=== PATIENT | female | born 1980 | race Caucasian/White ===

== ENCOUNTER 2018-01-07 07:51 | Emergency (ER) | payer OTHER ==
[2018-01-07 08:14] VITALS: BP 154/68
--- NOTE | 2018-01-07 08:46 | UC ---
Skin Complaint HPI - HPI Summary HPI Summary: 37 female presents to urgent care with complaints of a rash to her right arm that began on 01/05/18. Patient states she was at a concert and believe she was bit by a insect/spider. States rash is red and itchy. He took one Benadryl yesterday with some relief. Did apply some hydrocortisone cream which helped with the itching. Denies rash anywhere else. No fever no chills. No other complaints. Does have allergies. States the rash got worse on Monday, and has noticed 3 different bites on her right arm. denies any pain or discharge. - History of Current Complaint Hx Obtained From: Patient Hx Last Menstrual Period: n/a ?: No Onset/Duration: Sudden Onset, Lasting Days, Still Present Skin Exposure Onset/Duration: Days Ago Onset Severity: Mild Current Severity: Moderate Pain Intensity: 0 Pain Scale Used: 0-10 Numeric Location: Other - Right arm Character: Swelling, Pruritus, Redness Aggravating Factor(s): Humidity Alleviating Factor(s): Antihistamines - Benadryl and hydrocortisone cream Associated Signs & Symptoms: Positive: Rash Related History: Insect Bite/Sting <Roxann Talamantes - Last Filed: 01/07/18 08:48> <Michela Calzada - Last Filed: 01/07/18 09:39> - History of Current Complaint Chief Complaint: UCRash Time Seen by Provider: 01/07/18 08:14 Stated Complaint: RASH - RT ARM - Allergy/Home Medications Allergies/Adverse Reactions: Allergies Allergy/AdvReac Type Severity Reaction Status Date / Time seasonal Allergy Congestion Uncoded 01/07/18 08:04 Home Medications: Home Medications A-Nasal 1 spr BOTH NARES BID 01/07/18 [History Confirmed 01/07/18] Allergy Injections 1 dose SUBCUT SEE INSTRUCTIONS 01/07/18 [History] Fluticasone-Salmeterol 100-50* [Advair Diskus 100-50*] 1 puff INH BID 01/07/18 [ History Confirmed 01/07/18] Power C Vitamin Gummi 1 tab PO DAILY 01/07/18 [History] Zo-Lair Injection For Asthma 1 dose IM MONTHLY 01/07/18 [History] diPHENhydraMINE PO* [Benadryl PO 50 MG CAP*] 50 mg PO BEDTIME PRN 01/07/18 [ History Confirmed 01/07/18] Review of Systems Constitutional: Negative Skin: Rash Respiratory: Negative Cardiovascular: Negative - Small pain: All Other Systems Reviewed And Are Negative: Yes <Roxann Talamantes - Last Filed: 01/07/18 08:48> PMH/Surg Hx/FS Hx/Imm Hx - Additional Past Medical History Additional PMH: seasonal allergies GI/ History: Gastroesophageal Reflux - Surgical History Surgical History: Yes Surgery Procedure, Year, and Place: wisdom teeth, tonsils, c section x 1 - Family History Known Family History: Positive: None - Social History Alcohol Use: Occasionally Substance Use Type: None Smoking Status (MU): Never Smoked Tobacco - Immunization History Vaccination Up to Date: Yes <Roxann Talamantes - Last Filed: 01/07/18 08:48> Physical Exam Triage Information Reviewed: Yes Appearance: Well-Appearing, No Pain Distress, Well-Nourished Vital Signs: Initial Vital Signs Temp 98.4 F 01/07/18 08:06 Pulse 71 01/07/18 08:06 Resp 24 01/07/18 08:06 BP 154/68 01/07/18 08:06 Pulse Ox 98 01/07/18 08:06 Vital Signs Reviewed: Yes Eyes: Positive: Conjunctiva Clear Neck: Positive: Supple Respiratory: Positive: Chest non-tender, Lungs clear, Normal breath sounds, No respiratory distress Cardiovascular: Positive: RRR, No Murmur, Pulses Normal Musculoskeletal: Positive: Strength Intact, ROM Intact Neurological: Positive: Alert Skin: Positive: rashes - appears to have 3 disctint insect bites to right arm with erythema, induration and pruritis, no drainage, pain or rash elsewhere, rest of skin exam normal <Roxann Talamantes - Last Filed: 01/07/18 08:48> Vital Signs: Initial Vital Signs Temp 98.4 F 01/07/18 08:06 Pulse 71 01/07/18 08:06 Resp 24 01/07/18 08:06 BP 154/68 01/07/18 08:06 Pulse Ox 98 01/07/18 08:06 <Michela Calzada - Last Filed: 01/07/18 09:39> Course/Dx - Course Course Of Treatment: Patient has significant seasonal allergies she receives allergy shots for. Appears to be suffering from a contact dermatitis from insect bites. Recommended taking Claritin or Zyrtec during the day Benadryl at bedtime. Use prescribed triamcinolone cream. Recommended cold compresses to help with itching and to soothe the pain. Aware of worsening signs and to symptoms watch out for follow-up with PCP if any concerns. No other concerns or other etiology at this time. Normal vitals and physical exam otherwise. - Differential Diagnoses - Skin Complaint Differential Diagnoses: Contact Dermatitis, Local Allergic Reaction, Other - insect bite - Diagnoses Provider Diagnoses: local allergic reaction, insect bite <Roxann Talamantes - Last Filed: 01/07/18 08:48> Discharge - Sign-Out/Discharge Documenting (check all that apply): Discharge - Billing Disposition and Condition Condition: GOOD Disposition: HOME <Roxann Talamantes - Last Filed: 01/07/18 08:48> - Billing Disposition and Condition Condition: GOOD Disposition: HOME <Michela Calzada - Last Filed: 01/07/18 09:39> - Discharge Plan Condition: Good Disposition: HOME Prescriptions: Triamcinolone 0.1% CREAM(NF) [Kenalog Cream 0.1%(NF)] 1 applic TOPICAL BID #1 tube Patient Education Materials: Triamcinolone (On the skin), Contact Dermatitis ( ED), Insect Bite or Sting (ED), General Allergic Reaction (ED) Referrals: Rosana Burroughs, [facility] [Primary Care Provider] - Additional Instructions: Recommend OTC claritin or zyrtec during the day. Benadryl at bedtime, while symptoms last. Use prescribed cream to help with itching, erythema and swelling. Apply cool compresses to sooth and help with itching. Any new or worsening signs/symptoms please seek medical attention, as we discussed. Follow up with PCP to re-check in a few days if any concerns. Attestation Statement User Type: Provider - I was available for consult. This patient was seen by the LINNETTE. The patient was not presented to, seen by, or examined by me. -Jean <Michela Calzada - Last Filed: 01/07/18 09:39>
== END 2018-01-07 08:59 | disposition home or self-care (01) ==
LOC: UCCORT 07:51
DX: T63.481A Toxic effect of venom of other arthropod, accidental (unintentional), initial encounter (principal); R21 Rash and other nonspecific skin eruption
CPT/HCPCS: 99212; G0463

== ENCOUNTER 2018-04-07 08:23 | Emergency (ER) | payer OTHER ==
[2018-04-07 08:45] VITALS: BP 140/77
--- NOTE | 2018-04-07 09:18 | UC ---
Neck Pain HPI - HPI Summary HPI Summary: Patient is a 38-year-old female with a one-week history of right lateral neck pain radiating to her shoulder. He has no history of injury. Had similar symptoms before but usually they resolve in a few days. She has been taking some ibuprofen which tends to help. He has no numbness or tingling of the right upper extremity. She denies any headache. - History of Current Complaint Chief Complaint: UCUpperExtremity Stated Complaint: NECK COMPLAINT Time Seen by Provider: 04/07/18 09:03 Hx Obtained From: Patient Hx Last Menstrual Period: unknown Timing: Constant Onset/Duration: Gradual Onset, Lasting Days Severity: Moderate Pain Intensity: 6 Pain Scale Used: 0-10 Numeric Character: Aching, Stiff, Spasmotic Alleviating Factors: Position, Heat, Ice, Massage, OTC Meds Associated Signs & Symptoms: Positive: Negative - Allergies/Home Medications Allergies/Adverse Reactions: Allergies Allergy/AdvReac Type Severity Reaction Status Date / Time seasonal Allergy Congestion Uncoded 04/07/18 08:35 Home Medications: Home Medications Levonorgestrel (Iud) [Mirena IUD] 20 mcg IU ONCE 04/07/18 [History Confirmed ] PMH/Surg Hx/FS Hx/Imm Hx Endocrine History: Dyslipidemia Cardiovascular History: Hypertension Respiratory History: Asthma, Bronchitis GI/ History: Gastroesophageal Reflux - Surgical History Surgical History: Yes Surgery Procedure, Year, and Place: wisdom teeth, tonsils, c section x 1 - Family History Known Family History: Positive: Hypertension - Social History Alcohol Use: Occasionally Substance Use Type: None Smoking Status (MU): Never Smoked Tobacco - Immunization History Vaccination Up to Date: Yes Review Of Systems Constitutional: Positive: Negative Skin: Positive: Negative Eyes: Positive: Negative ENT: Positive: Negative Respiratory: Positive: Negative Cardiovascular: Positive: Negative Gastrointestinal: Positive: Negative Genitourinary: Positive: Negative Musculoskeletal: Positive: Myalgia Neurological: Positive: Negative Psychological: Positive: Negative All Other Systems Reviewed And Are Negative: Yes Physical Exam Triage Information Reviewed: Yes Appearance: Well-Appearing, No Pain Distress, Well-Nourished Vital Signs: Initial Vital Signs Temp 98.2 F 04/07/18 08:39 Pulse 64 04/07/18 08:39 Resp 16 04/07/18 08:39 BP 140/77 04/07/18 08:39 Pulse Ox 98 04/07/18 08:39 Vital Signs Reviewed: Yes Eyes: Positive: Conjunctiva Clear ENT: Positive: Hearing grossly normal. Negative: Nasal congestion, Nasal drainage, Trismus, Muffled voice, Hoarse voice Dental: Negative: Dental Fracture @ Neck: Positive: Nontender, No Lymphadenopathy, Other: - pain right trapzius with limited RIM Respiratory: Positive: Lungs clear, Normal breath sounds, No respiratory distress, No accessory muscle use Cardiovascular: Positive: RRR, No Murmur Musculoskeletal: Positive: ROM Intact, No Edema Neurological: Positive: Alert Psychological Exam: Normal Skin Exam: Normal Neck Pain Course/Dx - Differential Dx/Diagnosis Provider Diagnoses: right cervical strain Discharge - Sign-Out/Discharge Documenting (check all that apply): Discharge/Admit/Transfer - Discharge Plan Condition: Stable Disposition: HOME Prescriptions: Cyclobenzaprine TAB* [Flexeril TAB*] 10 mg PO TID PRN #21 tab PRN Reason: Spasms Patient Education Materials: Cervical Strain (ED) Referrals: Rosana Burroughs NP [Primary Care Provider] - 3 Days Additional Instructions: see your provider Monday as planned don't take muscle relaxer and drive or work ibuprofen 200mg 3 pills 4x day with food for pain soft cervical collar when up - Billing Disposition and Condition Condition: STABLE Disposition: Home
== END 2018-04-07 09:18 | disposition home or self-care (01) ==
LOC: UCCORT 08:23
DX: S16.1XXA Strain of muscle, fascia and tendon at neck level, initial encounter (principal); X58.XXXA Exposure to other specified factors, initial encounter; Y93.9 Activity, unspecified; Y92.9 Unspecified place or not applicable; I10 Essential (primary) hypertension
CPT/HCPCS: 99213; G0463

== ENCOUNTER 2018-12-17 08:07 | Emergency (ER) | payer OTHER ==
--- OUTSIDE RECORDS SUMMARY | 2018-12-17 08:24 | XMS REPORT | Continuity of Care Document ---
:1980 External Reference #:[id number] Author Name ANUP Lopez-Hunter Address [address] [place] [address] Care Team Providers Name Role Phone Itzel Salter MD Care Team Information Offline Cutter Unavailable Rosana Burroughs V, FNP Primary Care Physician Unavailable Payers Date Identification Numbers Payment Provider Subscriber Effective: 2017 Policy Number: [id number] [facility] Group Number: BERNICE #[id number] [address] Group Name: Medicaid [place] [address] PayID: [id number] Effective: 2013 Policy Number: [id number] Medicaid-Adult Betty Shields Expires: 2013 Group Name: 1 1 [id number] [facility] PayID: [id number] [place] [address] Effective: 2013 Policy Number: [id number] [facility] Betty Shields Expires: 2017 Group Number: BERNICE# [id number] [address] Group Name: Medicaid [place] [address] PayID: [id number] Advance Directives Description No Information Available Problems Date Description Provider Status Onset: 06/28/2012 Allergic rhinitis due to pollen Cindy Loja M.D. Active Onset: 06/28/2012 Allergic rhinitis Cindy Loja M.D. Active Onset: 01/18/2017 Uncomplicated severe persistent Vinay Colon M.D. Active asthma Onset: 09/21/2017 Uncomplicated moderate persistent Toribio Ryan M.D. Active asthma Family History Date Family Member(s) Observation Comments General Emphysema Paternal grandfather General Diabetes General Hypertension General Stroke General Hypercholesterolemia General Skin Disease/ Rash General Thyroid Disease General Cystic Fibrosis General Fibromyalgia General Arthritis Mother Father Hypercholesterolemia Father Stroke Father Hypertension Father Diabetes Mother Fibromyalgia Mother Unknown hypothyroid Mother Skin Disease/ Rash Mother Cystic Fibrosis Social History Type Date Description Comments Sex Unknown Marital Status Legal Status: Never Lives With Father Lives With Daughter Home Environment Does not use air manager rail Home Environment Has a window air conditioner Home Environment Stairs are present Home Environment Unfinished Basement Home Environment The basement is dry Home Environment Negative For The basement is moldy Home Environment The basement is damp Home Environment Negative For Musty Basement Home Environment Down Comforter Home Environment Mattress is 8 years old Home Environment Mattress is not encased in an allergy proof case Home Environment Cotton Mattress Cover Home Environment Regular Mattress Home Environment Pillows are not encased in an allergy proof case Home Environment Pillows are polyester Home Environment Does not use a dehumidifier Home Environment There are no draperies in the home Home Environment The home is not flora Home Environment The floors are carpeted Bedroom Home Environment The floors are tile Home Environment Uses natural gas heating Home Environment Lives in a new house Home Environment Lives in a new house in the city Home Environment Water Source: [facility] Smoke-Free Home is smoke-free Smoke-Free Work is smoke-free Pets Hamster 3 years, not in [place] Occupation Substitute Aide at Here Completed training [employer] at [facility] ETOH Use Occasionally consumes alcohol Recreational Drug Use Never Used Drugs Tobacco Use Start: Unknown Patient has never smoked Smoking Status Reviewed: 01/18/17 Patient has never smoked Allergies, Adverse Reactions, Alerts Description No Known Drug Allergies Medications Medication Date Status Form Strength Qnty SIG Indications Ordering Provider Augmentin 10/03 Active Tablets 875-125mg 28tab take 1 by Z23 Carmen /2018 s mouth twice a [place], day for 14 [facility] days Sterile Water 05/14 Active Solution 6mont use to Carmen For Injection hs reconstitute [place], xolair. [facility] single-dose vial(s), discard after use. Clotrimazole 05/08 Active Cream 1% 45gm use twice a J30.1 Carmen day to the [place], area [facility] Triamcinolone 05/08 Active Cream 0.1% 80gm apply to area J30.1 Carmen Acetonide twice a day [place], [facility] Epinephrine 02/09 Active Solution 0.3mg/0.3 2unit use as Carmen Auto-Inject ML s directed - bright Espinoza generic [facility] only [facility] [place]# [id number] Montelukast 01/08 Active Tablets 10mg 90tab take 1 tablet J45.40 Carmen Sodium s by mouth [place], every evening [facility] Fluticasone 09/11 Active Suspension 50mcg/Act 16uni Use 1 [place] Desire Propionate ts In Each Devang, Nostril Twice [facility] Daily Azelastine HCL 05/25 Active Solution 0.1% 90uni 1-2 Sprays In Z68.43 Ana (Nasal) ts Each Nostril Ash, 1-2 Times Per [facility] Day Cetirizine HCL 01/26 Active Tablets 10mg 30tab 1 by mouth Z68.43 Ana /2017 s every day Ash, [facility] Xolair 11/24 Active Solution 150mg 6unit inject 300 mg Carmen /2017 Rec s subcutaneousl drich, y every 4 [facility] weeks. Advair Diskus 08/31 Active Aerosol 500-50mcg 180un Use 1 puff By J45.40 Ana /2015 /Dose its Mouth Twice Ash, Daily [facility] Ventolin HFA 02/17 Active Aerosol 108(90Bas 1unit 2 inhalations Louisa /2014 e) s every 4-6 Forshier, mcg/Act hours as [facility] needed for cough, wheeze, sob, chest tightness Albuterol 02/06 Active Nebulizer 1.25mg/3M 75ml 1 vial via J30.1 Carmen Sulfate L nebulizer [place], every 4-6 [facility] hours as needed for cough, sob or wheezing Fexofenadine 01/29 Active Tablets 180mg 30tab 1 tablet by Desire /2012 s mouth Devang, everyday. [facility] Bisoprolol Active Tablets 5-6.25mg Rudy Salter/ Itzel cason MD Omeprazole Active Capsules DR 40mg 1 by mouth every day Lovastatin Active Tablets 10mg 1 tab daily Meclizine HCL Active Tablets 25mg as needed Levothyroxine Active Tablets 50mcg once daily Unknown Vitamin C Active Capsules 500mg 1 by mouth twice a day Multi For Her Active Tablets 1 tab daily Furosemide Active Tablets 20mg as needed Rgune, jamee Martínez V, [facility] Ibuprofen Active Tablets 200mg three tabs three times per day as needed. Medications Administered in Office Medication Date Status Form Strength Qnty SIG Indications Ordering Provider Biologic Agent 11/27/ Administered Injection Carmen Administration 2018 Olga, [facility] Injection 11/13/ Administered Injection Allergy 2018 Injection Injection 10/31/ Administered Injection Allergy 2018 Injection Biologic Agent 10/23/ Administered Injection Carmen Administration 2018 Ulwilliams, [facility] Injection 10/16/ Administered Injection Allergy 2018 Injection Biologic Agent 09/25/ Administered Injection Carmen Administration 2017 Uldrshamir, [facility] Injection 09/18/ Administered Injection Allergy 2018 Injection Injection 09/04/ Administered Injection Allergy 2018 Injection Biologic Agent 08/28/ Administered Injection Carmen Administration 2017 Ulwilliams, [facility] Injection 08/14/ Administered Injection Allergy 2018 Injection Injection 07/25/ Administered Injection Allergy 2017 Injection Injection 07/10/ Administered Injection Allergy 2018 Injection Biologic Agent 07/04/ Administered Injection Carmen Administration 2017 Uldrshamir, [facility] Injection 06/26/ Administered Injection Allergy 2017 Injection Biologic Agent 06/14/ Administered Injection Cindy Administration 2017 Xiomy Loja Biologic Agent 06/14/ Administered Injection Desire Administration 2017 Devang [facility] Injection 05/30/ Administered Injection Allergy 2017 Injection Injection 05/15/ Administered Injection Allergy 2017 Injection Biologic Agent 05/08/ Administered Injection Carmen Administration 2017 [place], [facility] Injection 05/01/ Administered Injection Allergy 2017 Injection Injection 04/18/ Administered Injection Allergy 2017 Injection Biologic Agent 04/10/ Administered Injection Cindy Administration 2017 Xiomy Loja Biologic Agent 04/10/ Administered Injection Carmen Administration 2017 [place], [facility] Injection 04/03/ Administered Injection Allergy 2017 Injection Injection 03/21/ Administered Injection Allergy 2017 Injection Biologic Agent 05/ Administered Injection Carmen Administration 2017 [place], [facility] Injection 03/06/ Administered Injection Allergy 2017 Injection Injection 15/ Administered Injection Allergy 2017 Injection Biologic Agent 05/08/ Administered Injection Cindy Administration 2017 Xiomy Loja Biologic Agent 05/ Administered Injection Carmen Administration 2017 [place], [facility] Injection 02/06/ Administered Injection Allergy 2017 Injection Injection 01/23/ Administered Injection Allergy 2017 Injection Biologic Agent // Administered Injection Carmen Administration 2017 [place], [facility] Injection 12/26/ Administered Injection Allergy 2017 Injection Biologic Agent 12/19/ Administered Injection Louisa Administration 2017 Forshier, [facility] Injection 12/12/ Administered Injection Allergy 2017 Injection Biologic Agent // Administered Injection Cindy Administration 2017 Xiomy Loja Biologic Agent 11/21/ Administered Injection Louisa Administration 2017 Forshier, [facility] Injection 11/14/ Administered Injection Allergy 2018 Injection Injection 10/31/ Administered Injection Allergy 2018 Injection Biologic Agent 10/24/ Administered Injection Cindy Administration 2017 Xiomy Loja Biologic Agent 16/ Administered Injection Carmen Administration 2017 [place], [facility] Injection 10/17/ Administered Injection Allergy 2017 Injection Biologic Agent /14/ Administered Injection Toribio Administration 2016 Xiomy Ryan Injection 08/29/ Administered Injection Allergy 2016 Injection Biologic Agent 08/22/ Administered Injection Cindy Administration 2016 Xiomy Loja Biologic Agent 08/22/ Administered Injection Louisa Administration 2017 Forshier, [facility] Injection 08/15/ Administered Injection Allergy 2016 Injection Injection 08/01/ Administered Injection Allergy 2016 Injection Biologic Agent 07/25/ Administered Injection Carmen Administration 2016 [place], [facility] Injection 07/11/ Administered Injection Allergy 2016 Injection Injection 06/29/ Administered Injection Cindy 2016 Xiomy Loja Injection 09/21/ Administered Injection Allergy 2016 Injection Biologic Agent 19/ Administered Injection Shelia M Administration 2016 Xiomy Madsen Injection 09// Administered Injection Allergy 2016 Injection Biologic Agent 17/ Administered Injection Cindy Administration 2016 Xiomy Loja Biologic Agent 17/ Administered Injection Ana Administration 2016 Ash, [facility] Injection 08/15/ Administered Injection Allergy 2016 Injection Injection 07/25/ Administered Injection Allergy 2016 Injection Injection 07/11/ Administered Injection Allergy 2016 Injection Injection /27/ Administered Injection Allergy 2016 Injection Biologic Agent 06/15/ Administered Injection Cindy Administration 2016 Xiomy Loja Biologic Agent /15/ Administered Injection Ana Administration 2016 Ash, [facility] Injection 06/13/ Administered Injection Allergy 2016 Injection Injection 05/30/ Administered Injection Allergy 2016 Injection Biologic Agent 05/18/ Administered Injection Ana Administration 2016 Ash, [facility] Injection 05/16/ Administered Injection Allergy 2016 Injection Injection 04/25/ Administered Injection Allergy 2016 Injection Biologic Agent 04/20/ Administered Injection Ana Administration 2016 Ash, [facility] Injection 03/29/ Administered Injection Allergy 2016 Injection Biologic Agent 0323/ Administered Injection Ana Administration 2016 Ash, [facility] Injection 03/07/ Administered Injection Allergy 2016 Injection Biologic Agent 02/16/ Administered Injection Ana Administration 2016 Ash, [facility] Injection 02/14/ Administered Injection Allergy 2016 Injection Injection 02/01/ Administered Injection Allergy 2016 Injection Biologic Agent /19/ Administered Injection Ana Administration 2016 Ash, [facility] Injection 01/17/ Administered Injection Allergy 2016 Injection Injection 01/04/ Administered Injection Allergy 2016 Injection Injection 12/20/ Administered Injection Allergy 2015 Injection Injection 12/06/ Administered Injection Allergy 2015 Injection Injection 11/23/ Administered Injection Allergy 2015 Injection Injection 11/01/ Administered Injection Allergy 2015 Injection Injection 10/04/ Administered Injection Allergy 2015 Injection Injection 09/20/ Administered Injection Allergy 2015 Injection Injection 09/06/ Administered Injection Allergy 2015 Injection Injection 08/16/ Administered Injection Allergy 2015 Injection Injection 08/02/ Administered Injection Allergy 2015 Injection Injection 07/19/ Administered Injection Allergy 2015 Injection Injection 07/05/ Administered Injection Allergy 2015 Injection Injection 06/21/ Administered Injection Allergy 2015 Injection Injection 06/07/ Administered Injection Allergy 2015 Injection Injection 05/24/ Administered Injection Allergy 2015 Injection Injection 05/10/ Administered Injection Allergy 2015 Injection Injection // Administered Injection Cindy 2015 Xiomy Loja Injection 29/ Administered Injection Allergy 2015 Injection Injection 03/15/ Administered Injection Allergy 2015 Injection Injection 03/01/ Administered Injection Allergy 2015 Injection Injection 02/16/ Administered Injection Allergy 2015 Injection Injection 02/02/ Administered Injection Allergy 2015 Injection Injection // Administered Injection Allergy 2015 Injection Injection 09/29/ Administered Injection Allergy 2014 Injection Injection 24/ Administered Injection Cindy 2014 Xiomy Loja Injection 24/ Administered Injection Allergy 2014 Injection Injection 11/10/ Administered Injection Allergy 2014 Injection Injection 08/04/ Administered Injection Allergy 2014 Injection Injection 10// Administered Injection Allergy 2014 Injection Injection 07/07/ Administered Injection Allergy 2014 Injection Injection 09/15/ Administered Injection Allergy 2014 Injection Injection 08// Administered Injection Allergy 2014 Injection Injection 08// Administered Injection Allergy 2014 Injection Injection 05/05/ Administered Injection Allergy 2014 Injection Injection 07/07/ Administered Injection Allergy 2015 Injection Injection 0623/ Administered Injection Allergy 2015 Injection Injection 06/09/ Administered Injection Allergy 2015 Injection Injection 05/12/ Administered Injection Allergy 2015 Injection Injection 02/03/ Administered Injection Allergy 2015 Injection Injection 04/14/ Administered Injection Allergy 2015 Injection Injection 04/07/ Administered Injection Allergy 2015 Injection Injection 01/06/ Administered Injection Allergy 2015 Injection Injection 24/ Administered Injection Allergy 2015 Injection Injection 02/10/ Administered Injection Allergy 2015 Injection Injection // Administered Injection Allergy 2015 Injection Injection 12/16/ Administered Injection Allergy 2013 Injection Injection 18/ Administered Injection Allergy 2013 Injection Injection // Administered Injection Allergy 2013 Injection Injection 07/29/ Administered Injection Cindy 2013 Xiomy Loja Injection 07/29/ Administered Injection Allergy 2013 Injection Injection 07/15/ Administered Injection Cindy 2013 Xiomy Loja Injection 07/15/ Administered Injection Allergy 2013 Injection Injection 07/01/ Administered Injection Cindy 2013 Xiomy Loja Injection 07/01/ Administered Injection Allergy 2013 Injection Injection 06/17/ Administered Injection Cindy 2013 Xiomy Loja Injection 06/17/ Administered Injection Allergy 2013 Injection Injection // Administered Injection Cindy 2013 Xiomy Loja Injection 05/20/ Administered Injection Allergy 2013 Injection Injection 04/29/ Administered Injection 2013 Xiomy Loja Injection 04/29/ Administered Injection Allergy 2013 Injection Injection 04/15/ Administered Injection 2013 Xiomy Loja Injection 04/15/ Administered Injection Allergy 2013 Injection Injection 04/01/ Administered Injection Allergy 2013 Injection Injection 03/18/ Administered Injection Allergy 2013 Injection Injection 03/11/ Administered Injection 2013 Xiomy Loja Injection 03/11/ Administered Injection Allergy 2013 Injection Injection 03/04/ Administered Injection 2013 Xiomy Loja Injection 03/04/ Administered Injection Allergy 2013 Injection Injection 02/25/ Administered Injection 2013 Xiomy oLja Injection 02/25/ Administered Injection Allergy 2013 Injection Injection 02/18/ Administered Injection 2013 Xiomy Loja Injection 02/18/ Administered Injection Allergy 2013 Injection Injection 02/04/ Administered Injection 2013 Xiomy Loja Injection 02/04/ Administered Injection Allergy 2013 Injection Injection 01/28/ Administered Injection 2013 Xiomy Loja Injection 01/28/ Administered Injection Allergy 2013 Injection Injection 01/14/ Administered Injection 2013 Xiomy Loja Injection 01/14/ Administered Injection Allergy 2013 Injection Injection 01/07/ Administered Injection 2013 Xiomy Loja Injection 01/07/ Administered Injection Allergy 2013 Injection Injection 12/31/ Administered Injection 2013 Xiomy Loja Injection 12/31/ Administered Injection Allergy 2013 Injection Injection 12/24/ Administered Injection 2013 Xiomy Loja Injection 12/24/ Administered Injection Allergy 2013 Injection Injection 12/17/ Administered Injection Allergy 2013 Injection Injection // Administered Injection Allergy 2013 Injection Injection 12/03/ Administered Injection Allergy 2013 Injection Injection 11/19/ Administered Injection Allergy 2013 Injection Injection 11/12/ Administered Injection Allergy 2013 Injection Injection 10/31/ Administered Injection 2013 Xiomy Loja Injection 10/31/ Administered Injection Allergy 2013 Injection Injection 10/22/ Administered Injection Allergy 2013 Injection Injection 10/17/ Administered Injection 2013 Xiomy Loja Injection 10/17/ Administered Injection Allergy 2013 Injection Injection 09/26/ Administered Injection 2012 Xiomy Loja Injection 09/26/ Administered Injection Allergy 2012 Injection Injection // Administered Injection 2012 Xiomy Loja Injection // Administered Injection Allergy 2012 Injection Injection 09/12/ Administered Injection 2012 Xiomy Loja Injection // Administered Injection Allergy 2012 Injection Injection 09/03/ Administered Injection 2012 Xiomy Loja Injection 09/03/ Administered Injection Allergy 2012 Injection Injection 08/27/ Administered Injection 2012 Xiomy Loja Injection 08/27/ Administered Injection Allergy 2012 Injection Injection 08/22/ Administered Injection 2012 Xiomy Loja Injection 08/22/ Administered Injection Allergy 2012 Injection Injection 08/13/ Administered Injection 2012 Xiomy Loja Injection 08/13/ Administered Injection Allergy 2012 Injection Injection 08/08/ Administered Injection 2012 Xiomy Loja Injection 08/08/ Administered Injection Allergy 2012 Injection Injection 08/01/ Administered Injection 2012 Xiomy Loja Injection 24/ Administered Injection Allergy 2012 Injection Injection 10/15/ Administered Injection 2012 Xiomy Loja Injection /15/ Administered Injection Allergy 2012 Injection Injection 10/10/ Administered Injection 2012 Xiomy Loja Injection 10/10/ Administered Injection Allergy 2012 Injection Injection 06/27/ Administered Injection 2012 Xiomy Loja Injection 06/27/ Administered Injection Allergy 2012 Injection Injection 09/05/ Administered Injection 2012 Xiomy Loja Injection 09/05/ Administered Injection Allergy 2012 Injection Injection 25/ Administered Injection 2012 Xiomy Loja Injection /25/ Administered Injection Allergy 2012 Injection Injection /16/ Administered Injection 2012 Xiomy Loja Injection /16/ Administered Injection Allergy 2012 Injection Injection 04/04/ Administered Injection 2012 Xiomy oLja Injection // Administered Injection Allergy 2012 Injection Injection /20/ Administered Injection 2012 Xiomy Loja Injection /20/ Administered Injection Allergy 2012 Injection Injection 06/04/ Administered Injection 2012 Xoimy Loja Injection 06/04/ Administered Injection Allergy 2012 Injection Injection 03/07/ Administered Injection 2012 Xiomy Loja Injection 03/07/ Administered Injection Allergy 2012 Injection Injection 02/26/ Administered Injection 2012 Xiomy Loja Injection 02/26/ Administered Injection Allergy 2012 Injection Injection 02/21/ Administered Injection 2012 Xiomy Loja Injection 02/21/ Administered Injection Allergy 2012 Injection Injection 02/12/ Administered Injection Allergy 2012 Injection Injection 02/05/ Administered Injection 2012 Xiomy Loja Injection 02/05/ Administered Injection Allergy 2012 Injection Injection 01/29/ Administered Injection Allergy 2012 Injection Injection 12/27/ Administered Injection 2012 Xiomy Loja Injection 12/27/ Administered Injection Allergy 2012 Injection Injection 12/18/ Administered Injection 2012 Xiomy Loja Injection 12/11/ Administered Injection 2012 Xiomy Loja Injection 12/06/ Administered Injection 2012 Xiomy Loja Injection 11/29/ Administered Injection 2012 Xiomy Loja Injection 08/28/ Administered Injection 2011 Xiomy Loja Injection 08/23/ Administered Injection 2011 Xiomy Loja Injection 08/16/ Administered Injection 2011 Xiomy Loja Injection 08/09/ Administered Injection 2011 Xiomy Loja Injection 08/02/ Administered Injection 2011 Xiomy Loja Injection 07/26/ Administered Injection Cindy 2011 Xiomy Loja Immunizations CPT Code Status Date Vaccine Lot # 05164 Given Unknown Influenza Vaccine [id number] Given Unknown Influenza Vaccine 24988 Given Unknown Influenza Vaccine Vital Signs Date Vital Result Comment 11/27/2018 4:08pm Height 65 inches 5'5" Weight 326.00 lb Weight 147.874 kg Respiratory Rate 18 /min Heart Rate 72 /min O2 % BldC Oximetry 98 % BP Systolic 122 mmHg BP Diastolic 74 mmHg Asthma Control Test 24 BMI (Body Mass Index) 54.2 kg/m2 10/23/2018 4:26pm Height 65 inches 5'5" Weight 326.00 lb Weight 147.874 kg Respiratory Rate 18 /min Heart Rate 84 /min O2 % BldC Oximetry 95 % BP Systolic 122 mmHg BP Diastolic 70 mmHg Asthma Control Test 24 BMI (Body Mass Index) 54.2 kg/m2 10/03/2018 9:11am Height 65 inches 5'5" Weight 326.00 lb Weight 147.874 kg Respiratory Rate 20 /min Heart Rate 86 /min Body Temperature 97.5 F O2 % BldC Oximetry 97 % BP Systolic 135 mmHg BP Diastolic 84 mmHg Asthma Control Test 24 BMI (Body Mass Index) 54.2 kg/m2 09/25/2018 4:16pm Height 65 inches 5'5" Weight 342.00 lb Weight 155.131 kg Respiratory Rate 18 /min Heart Rate 82 /min O2 % BldC Oximetry 97 % BP Systolic 119 mmHg BP Diastolic 67 mmHg Asthma Control Test 24 BMI (Body Mass Index) 56.9 kg/m2 08/28/2018 4:19pm Height 65 inches 5'5" Weight 342.00 lb Weight 155.131 kg Respiratory Rate 18 /min Heart Rate 78 /min O2 % BldC Oximetry 95 % BP Systolic 126 mmHg BP Diastolic 72 mmHg Asthma Control Test 24 Fractional Exhaled Nitric Oxide 8 BMI (Body Mass Index) 56.9 kg/m2 07/04/2018 4:11pm Height 65 inches 5'5" Weight 342.00 lb Weight 155.131 kg Respiratory Rate 20 /min Heart Rate 78 /min O2 % BldC Oximetry 96 % BP Systolic 127 mmHg BP Diastolic 74 mmHg Asthma Control Test 25 BMI (Body Mass Index) 56.9 kg/m2 06/14/2018 4:05pm Height 65 inches 5'5" Weight 348.00 lb Weight 157.853 kg Respiratory Rate 18 /min Heart Rate 83 /min O2 % BldC Oximetry 95 % BP Systolic 123 mmHg BP Diastolic 71 mmHg Asthma Control Test 24 BMI (Body Mass Index) 57.9 kg/m2 05/08/2018 4:00pm Height 65 inches 5'5" Weight 348.00 lb Weight 157.853 kg Respiratory Rate 26 /min Heart Rate 80 /min O2 % BldC Oximetry 97 % BP Systolic 116 mmHg BP Diastolic 66 mmHg Asthma Control Test 24 BMI (Body Mass Index) 57.9 kg/m2 04/10/2018 4:05pm Height 65 inches 5'5" Weight 290.00 lb Weight 131.544 kg Respiratory Rate 18 /min Heart Rate 80 /min O2 % BldC Oximetry 96 % BP Systolic 103 mmHg BP Diastolic 60 mmHg Asthma Control Test 24 BMI (Body Mass Index) 48.3 kg/m2 03/13/2018 4:07pm Height 65 inches 5'5" Weight 290.00 lb Weight 131.544 kg Respiratory Rate 32 /min Heart Rate 77 /min O2 % BldC Oximetry 97 % BP Systolic 123 mmHg BP Diastolic 68 mmHg Asthma Control Test 24 BMI (Body Mass Index) 48.3 kg/m2 02/13/2018 4:04pm Height 65 inches 5'5" Weight 342.00 lb Weight 155.131 kg Respiratory Rate 24 /min Heart Rate 81 /min O2 % BldC Oximetry 95 % BP Systolic 121 mmHg BP Diastolic 68 mmHg BMI (Body Mass Index) 56.9 kg/m2 01/16/2018 4:32pm Height 65 inches 5'5" Weight 336.00 lb Weight 152.410 kg Respiratory Rate 18 /min Heart Rate 80 /min O2 % BldC Oximetry 97 % BP Systolic 123 mmHg BP Diastolic 74 mmHg Asthma Control Test 11 BMI (Body Mass Index) 55.9 kg/m2 01/08/2018 2:42pm Height 65 inches 5'5" Weight 330.00 lb Weight 149.688 kg Respiratory Rate 20 /min Heart Rate 93 /min O2 % BldC Oximetry 97 % BP Systolic 133 mmHg BP Diastolic 70 mmHg Asthma Control Test 18 BMI (Body Mass Index) 54.9 kg/m2 12/19/2017 4:07pm Height 65 inches 5'5" Weight 328.00 lb Weight 148.781 kg Respiratory Rate 18 /min Heart Rate 83 /min O2 % BldC Oximetry 96 % BP Systolic 119 mmHg BP Diastolic 75 mmHg Asthma Control Test 20 BMI (Body Mass Index) 54.6 kg/m2 11/21/2017 3:37pm Height 65 inches 5'5" Weight 328.00 lb Weight 148.781 kg Respiratory Rate 16 /min Heart Rate 80 /min O2 % BldC Oximetry 98 % BP Systolic 118 mmHg BP Diastolic 75 mmHg Asthma Control Test 24 BMI (Body Mass Index) 54.6 kg/m2 10/24/2017 4:09pm Height 65 inches 5'5" Weight 333.00 lb Weight 151.049 kg Respiratory Rate 20 /min Heart Rate 86 /min O2 % BldC Oximetry 98 % BP Systolic 113 mmHg BP Diastolic 65 mmHg Asthma Control Test 24 BMI (Body Mass Index) 55.4 kg/m2 09/21/2017 2:16pm Height 65 inches 5'5" Weight 335.00 lb Weight 151.956 kg Respiratory Rate 20 /min Heart Rate 77 /min O2 % BldC Oximetry 98 % BP Systolic 131 mmHg BP Diastolic 69 mmHg Asthma Control Test 16 BMI (Body Mass Index) 55.7 kg/m2 09/19/2017 4:09pm Height 65 inches 5'5" Weight 335.00 lb Weight 151.956 kg Respiratory Rate 20 /min Heart Rate 89 /min Body Temperature 99.3 F 99.0 O2 % BldC Oximetry 96 % BP Systolic 123 mmHg BP Diastolic 72 mmHg Asthma Control Test 16 BMI (Body Mass Index) 55.7 kg/m2 08/22/2017 4:22pm Height 65 inches 5'5" Weight 329.00 lb Weight 149.234 kg Respiratory Rate 20 /min Heart Rate 81 /min O2 % BldC Oximetry 96 % BP Systolic 116 mmHg BP Diastolic 66 mmHg Asthma Control Test 24 BMI (Body Mass Index) 54.7 kg/m2 07/25/2017 4:13pm Height 65 inches 5'5" Weight 332.00 lb Weight 150.595 kg Respiratory Rate 18 /min Heart Rate 81 /min O2 % BldC Oximetry 96 % BP Systolic 107 mmHg BP Diastolic 70 mmHg Asthma Control Test 24 BMI (Body Mass Index) 55.2 kg/m2 06/27/2017 4:04pm Height 64 inches 5'4" Weight 324.00 lb Weight 146.966 kg Respiratory Rate 18 /min Heart Rate 83 /min O2 % BldC Oximetry 97 % BP Systolic 120 mmHg BP Diastolic 73 mmHg Asthma Control Test 25 BMI (Body Mass Index) 55.6 kg/m2 05/25/2017 11:36am Height 64 inches 5'4" Weight 342.00 lb Weight 155.131 kg Respiratory Rate 24 /min Heart Rate 83 /min O2 % BldC Oximetry 96 % BP Systolic 112 mmHg BP Diastolic 64 mmHg Asthma Control Test 24 BMI (Body Mass Index) 58.7 kg/m2 03/23/2017 9:46am Height 64 inches 5'4" Weight 336.00 lb Weight 152.410 kg Respiratory Rate 20 /min Heart Rate 74 /min O2 % BldC Oximetry 97 % BP Systolic 112 mmHg BP Diastolic 57 mmHg Asthma Control Test 24 BMI (Body Mass Index) 57.7 kg/m2 02/23/2017 8:58am Height 64 inches 5'4" Weight 336.00 lb Weight 152.410 kg Respiratory Rate 26 /min Heart Rate 85 /min O2 % BldC Oximetry 98 % BP Systolic 124 mmHg BP Diastolic 71 mmHg Asthma Control Test 9 BMI (Body Mass Index) 57.7 kg/m2 01/26/2017 9:34am Height 64 inches 5'4" Weight 320.00 lb Weight 145.152 kg Respiratory Rate 20 /min Heart Rate 77 /min O2 % BldC Oximetry 97 % BP Systolic 121 mmHg BP Diastolic 67 mmHg Asthma Control Test 16 BMI (Body Mass Index) 54.9 kg/m2 01/18/2017 8:44am Height 64 inches 5'4" Weight 337.00 lb Patient stated Weight 152.863 kg Respiratory Rate 24 /min Heart Rate 76 /min Body Temperature 99.1 F O2 % BldC Oximetry 97 % BP Systolic 124 mmHg BP Diastolic 68 mmHg BMI (Body Mass Index) 57.8 kg/m2 12/29/2016 8:38am Height 64 inches 5'4" Weight 337.00 lb Weight 152.863 kg Respiratory Rate 20 /min Heart Rate 77 /min O2 % BldC Oximetry 96 % BP Systolic 128 mmHg BP Diastolic 86 mmHg Asthma Control Test 20 BMI (Body Mass Index) 57.8 kg/m2 12/22/2016 9:04am Height 64 inches 5'4" Weight 332.00 lb Weight 150.595 kg Respiratory Rate 20 /min Heart Rate 73 /min O2 % BldC Oximetry 96 % BP Systolic 113 mmHg BP Diastolic 54 mmHg Asthma Control Test 18 BMI (Body Mass Index) 57.0 kg/m2 11/24/2016 8:52am Height 64 inches 5'4" Weight 332.00 lb Weight 150.595 kg Respiratory Rate 18 /min Heart Rate 72 /min O2 % BldC Oximetry 97 % BP Systolic 112 mmHg BP Diastolic 55 mmHg Asthma Control Test 24 BMI (Body Mass Index) 57.0 kg/m2 10/27/2016 8:50am Height 64 inches 5'4" Weight 332.00 lb Weight 150.595 kg Respiratory Rate 22 /min Heart Rate 86 /min O2 % BldC Oximetry 99 % BP Systolic 116 mmHg BP Diastolic 71 mmHg Asthma Control Test 24 BMI (Body Mass Index) 57.0 kg/m2 08/31/2016 11:48am Height 64 inches 5'4" Weight 328.00 lb Weight 148.781 kg Respiratory Rate 24 /min Heart Rate 90 /min O2 % BldC Oximetry 98 % BP Systolic 104 mmHg BP Diastolic 68 mmHg Asthma Control Test 19 BMI (Body Mass Index) 56.3 kg/m2 08/23/2016 8:50am Height 64 inches 5'4" Weight 331.00 lb Weight 150.142 kg Respiratory Rate 24 /min Heart Rate 86 /min Body Temperature 98.8 F O2 % BldC Oximetry 96 % BP Systolic 117 mmHg BP Diastolic 67 mmHg Asthma Control Test 12 BMI (Body Mass Index) 56.8 kg/m2 07/05/2016 3:45pm Height 65 inches 5'5" Weight 330.00 lb Weight 149.688 kg Respiratory Rate 18 /min Heart Rate 77 /min O2 % BldC Oximetry 97 % BP Systolic 100 mmHg BP Diastolic 42 mmHg Asthma Control Test 24 BMI (Body Mass Index) 54.9 kg/m2 05/10/2016 11:24am Height 65.25 inches 5'5.25" Weight 328.00 lb Weight 148.781 kg Respiratory Rate 24 /min Heart Rate 86 /min Body Temperature 98.2 F O2 % BldC Oximetry 96 % BP Systolic 130 mmHg BP Diastolic 78 mmHg Asthma Control Test 24 BMI (Body Mass Index) 54.2 kg/m2 02/02/2016 10:47am Height 65.25 inches 5'5.25" Weight 320.00 lb patient stated Weight 145.152 kg Respiratory Rate 20 /min Heart Rate 82 /min O2 % BldC Oximetry 98 % BP Systolic 112 mmHg BP Diastolic 66 mmHg Asthma Control Test 14 BMI (Body Mass Index) 52.8 kg/m2 01/25/2016 8:59am Height 65.25 inches 5'5.25" Weight 320.00 lb Weight 145.152 kg Respiratory Rate 22 /min Heart Rate 68 /min Body Temperature 98.7 F O2 % BldC Oximetry 97 % BP Systolic 113 mmHg BP Diastolic 63 mmHg Asthma Control Test 10 BMI (Body Mass Index) 52.8 kg/m2 01/05/2016 4:37pm Height 65.25 inches 5'5.25" Weight 318.00 lb Weight 144.245 kg Respiratory Rate 24 /min Heart Rate 82 /min O2 % BldC Oximetry 98 % BP Systolic 127 mmHg BP Diastolic 71 mmHg Asthma Control Test 25 BMI (Body Mass Index) 52.5 kg/m2 11/24/2015 4:25pm Height 65.25 inches 5'5.25" Weight 324.00 lb Weight 146.966 kg Respiratory Rate 20 /min Heart Rate 79 /min O2 % BldC Oximetry 97 % BP Systolic 111 mmHg BP Diastolic 63 mmHg Asthma Control Test 18 BMI (Body Mass Index) 53.5 kg/m2 11/17/2015 4:18pm Height 66.5 inches 5'6.50" Weight 319.00 lb Weight 144.698 kg Respiratory Rate 20 /min Heart Rate 77 /min Body Temperature 98.8 F O2 % BldC Oximetry 96 % BP Systolic 123 mmHg BP Diastolic 70 mmHg BMI (Body Mass Index) 50.7 kg/m2 07/07/2015 4:40pm Height 66.5 inches 5'6.50" Weight 312.00 lb Weight 141.523 kg Respiratory Rate 18 /min Heart Rate 72 /min O2 % BldC Oximetry 96 % BP Systolic 116 mmHg BP Diastolic 71 mmHg Asthma Control Test 20 BMI (Body Mass Index) 49.6 kg/m2 04/14/2015 4:52pm Height 66.5 inches 5'6.50" Weight 315.00 lb Weight 142.884 kg Respiratory Rate 20 /min Heart Rate 75 /min O2 % BldC Oximetry 96 % BP Systolic 111 mmHg BP Diastolic 56 mmHg Asthma Control Test 15 BMI (Body Mass Index) 50.1 kg/m2 04/07/2015 4:35pm Height 66.5 inches 5'6.50" Weight 315.00 lb Weight 142.884 kg Respiratory Rate 18 /min Heart Rate 76 /min O2 % BldC Oximetry 98 % BP Systolic 134 mmHg BP Diastolic 92 mmHg Asthma Control Test 19 BMI (Body Mass Index) 50.1 kg/m2 02/24/2015 4:41pm Height 66.5 inches 5'6.50" Weight 312.00 lb Weight 141.523 kg Respiratory Rate 16 /min Heart Rate 94 /min O2 % BldC Oximetry 98 % BP Systolic 130 mmHg BP Diastolic 86 mmHg Asthma Control Test 24 BMI (Body Mass Index) 49.6 kg/m2 02/09/2015 1:41pm Height 65.5 inches 5'5.50" Weight 309.38 lb Weight 140.333 kg Respiratory Rate 18 /min Heart Rate 86 /min O2 % BldC Oximetry 95 % BP Systolic 124 mmHg BP Diastolic 72 mmHg Asthma Control Test 23 BMI (Body Mass Index) 50.7 kg/m2 12/30/2014 4:55pm Height 65.5 inches 5'5.50" Weight 309.00 lb Weight 140.162 kg Respiratory Rate 16 /min Heart Rate 74 /min O2 % BldC Oximetry 98 % BP Systolic 132 mmHg BP Diastolic 84 mmHg Asthma Control Test 22 BMI (Body Mass Index) 50.6 kg/m2 11/25/2014 10:46am Height 65.5 inches 5'5.50" Weight 309.00 lb Weight 140.162 kg Respiratory Rate 18 /min Heart Rate 64 /min Body Temperature 98.5 F O2 % BldC Oximetry 97 % BP Systolic 122 mmHg BP Diastolic 68 mmHg Asthma Control Test 17 BMI (Body Mass Index) 50.6 kg/m2 07/29/2014 9:07am Height 65.5 inches 5'5.50" Weight 309.00 lb Weight 140.162 kg Respiratory Rate 16 /min Heart Rate 70 /min O2 % BldC Oximetry 98 % BP Systolic 120 mmHg BP Diastolic 70 mmHg Asthma Control Test 24 BMI (Body Mass Index) 50.6 kg/m2 07/01/2014 4:41pm Height 65.5 inches 5'5.50" Weight 301.00 lb Weight 136.534 kg Respiratory Rate 18 /min Heart Rate 76 /min O2 % BldC Oximetry 98 % BP Systolic 130 mmHg BP Diastolic 80 mmHg Asthma Control Test 16 BMI (Body Mass Index) 49.3 kg/m2 06/26/2014 8:36am Height 64 inches 5'4" Weight 298.00 lb Weight 135.173 kg Respiratory Rate 20 /min Heart Rate 83 /min O2 % BldC Oximetry 98 % BP Systolic 136 mmHg BP Diastolic 80 mmHg BMI (Body Mass Index) 51.1 kg/m2 02/06/2014 9:13am Height 66 inches 5'6" Weight 298.00 lb Weight 135.173 kg Respiratory Rate 16 /min Heart Rate 76 /min O2 % BldC Oximetry 96 % BP Systolic 122 mmHg BP Diastolic 84 mmHg Asthma Control Test 17 BMI (Body Mass Index) 48.1 kg/m2 01/21/2014 10:26am Height 66 inches 5'6" Weight 296.00 lb Weight 134.266 kg Respiratory Rate 18 /min Heart Rate 70 /min O2 % BldC Oximetry 98 % BP Systolic 128 mmHg BP Diastolic 82 mmHg Asthma Control Test 24 BMI (Body Mass Index) 47.8 kg/m2 11/19/2013 8:54am Height 64 inches 5'4" Weight 292.00 lb Weight 132.451 kg Heart Rate 75 /min O2 % BldC Oximetry 96 % BP Systolic 120 mmHg BP Diastolic 68 mmHg Asthma Control Test 24 BMI (Body Mass Index) 50.1 kg/m2 10/17/2013 8:51am Height 64 inches 5'4" Weight 295.00 lb Weight 133.812 kg Respiratory Rate 18 /min Heart Rate 75 /min O2 % BldC Oximetry 97 % BP Systolic 124 mmHg BP Diastolic 88 mmHg BMI (Body Mass Index) 50.6 kg/m2 09/26/2013 11:39am Height 64 inches 5'4" Weight 295.00 lb Weight 133.812 kg Respiratory Rate 16 /min Heart Rate 67 /min O2 % BldC Oximetry 98 % BMI (Body Mass Index) 50.6 kg/m2 07/23/2013 9:42am Height 64 inches 5'4" Weight 320.00 lb Weight 145.152 kg Respiratory Rate 16 /min Heart Rate 68 /min O2 % BldC Oximetry 98 % BMI (Body Mass Index) 54.9 kg/m2 07/04/2013 10:31am Height 64 inches 5'4" Weight 320.00 lb Weight 145.152 kg Respiratory Rate 20 /min Heart Rate 67 /min O2 % BldC Oximetry 97 % BMI (Body Mass Index) 54.9 kg/m2 05/14/2013 8:58am Weight 311.00 lb Weight 141.070 kg Respiratory Rate 16 /min Heart Rate 70 /min O2 % BldC Oximetry 98 % 05/09/2013 9:38am Height 64 inches 5'4" Weight 320.00 lb Weight 145.152 kg Respiratory Rate 20 /min Heart Rate 87 /min O2 % BldC Oximetry 96 % BP Systolic 156 mmHg BP Diastolic 80 mmHg BMI (Body Mass Index) 54.9 kg/m2 01/17/2013 9:22am Height 64 inches 5'4" Weight 320.00 lb Weight 145.152 kg Respiratory Rate 18 /min Heart Rate 68 /min O2 % BldC Oximetry 96 % BP Systolic 132 mmHg BP Diastolic 78 mmHg BMI (Body Mass Index) 54.9 kg/m2 06/28/2012 2:27pm Height 63 inches 5'3" Weight 324.00 lb Weight 146.966 kg Heart Rate 80 /min O2 % BldC Oximetry 96 % BMI (Body Mass Index) 57.4 kg/m2 Results Test Date Facility Test Result H/L Range Note CBC With Auto 09/08/2016 [facility] White Blood 8.4 K /uL N 3.1-10.[address] [place] [address] [phone] Red Blood Count 4.91 M/uL N 3.90-5.40 Hemoglobin 12.9 gm/dL N 11.6-15.8 Hematocrit 40.3 % N 36.0-46.1 Mean Cell Volume 82.1 fl N 80.9-99.0 Mean Corpuscular HGB 26.3 pg N 25.9-32.7 Mean Corpuscular HGB Conc 32.0 g/dL N 30.8-34.3 Platelet Count 179 K/uL N 155-360 Red Cell Distri Width SD 45.0 fl N 3-47 Red Cell Distri Width %CV 15.5 % High 11.7-14.4 Mean Platelet Volume 11.4 fL N 8.9-12.4 Neut% 70.9 % N 40.4-72.8 Lymph % 20.0 % N 17.0-46.1 [place] % 6.2 % N 4.3-13.2 Eo% 2.7 % N 0.0-6.6 Bas% 0.2 % N 0.0-1.1 Neut# 5.98 K/uL N 1.8-7.0 Lymph # 1.69 K/uL Low 1.8-7.0 [place] # 0.52 K/uL N 0.3-0.9 Eos # 0.23 K/uL N 0.0-0.5 Baso # 0.02 K/uL N 0.0-0.1 Laboratory test 09/08/2016 [facility] Slide Review ( SEE NOTE) N 1 finding [address] [place] [address] [phone] Immunoglobulin E,Total 76 IU/mL N 0-100 2 1 Instrument flagged sample for slide review. Less than 10% Bands seen, no other immature WBC's seen. RBC morphology essentially normal. Platelet estimate=NORMAL 2 Performed at: RN - [facility] [address] [id number] Chemical Plant Manager: Beverley Thomas MD, Phone: [phone] Procedures Date Code Description Status 11/27/2018 45123 Biologic Agent Administration Completed 11/13/2018 59885 Injection Completed 10/31/2018 73432 Extract 1-10 Completed 10/31/2018 44286 Injection Completed 10/23/2018 09848 Biologic Agent Administration Completed 10/16/2018 58093 Injection Completed 09/25/2018 93040 Biologic Agent Administration Completed 09/18/2018 30816 Injection Completed 09/04/2018 86811 Injection Completed 08/28/2018 80458 Nitric Oxide Gas Determination Completed 08/28/2018 54045 Biologic Agent Administration Completed 08/14/2018 41932 Injection Completed 07/25/2018 92726 Injection Completed 07/10/2018 68927 Injection Completed 07/04/2018 89089 Biologic Agent Administration Completed 06/26/2018 37820 Injection Completed 06/14/2018 92190 Pre PFT Completed 06/14/2018 31352 Pre PFT Completed 06/14/2018 26522 Biologic Agent Administration Completed 06/14/2018 43800 Biologic Agent Administration Completed 05/30/2018 93718 Injection Completed 05/15/2018 90690 Injection Completed 05/08/2018 03430 Biologic Agent Administration Completed 05/01/2018 07338 Extract 1-10 Completed 05/01/2018 53074 Injection Completed 04/18/2018 82014 Injection Completed 04/10/2018 66786 Biologic Agent Administration Completed 04/10/2018 68095 Biologic Agent Administration Completed 04/03/2018 92128 Injection Completed 03/21/2018 19050 Injection Completed 03/13/2018 96697 Biologic Agent Administration Completed 03/06/2018 81163 Injection Completed 02/20/2018 49272 Injection Completed 02/13/2018 30851 Biologic Agent Administration Completed 02/13/2018 06717 Biologic Agent Administration Completed 02/06/2018 63559 Injection Completed 01/23/2018 35300 Injection Completed 01/16/2018 53061 Biologic Agent Administration Completed 12/26/2017 43171 Injection Completed 12/19/2017 44979 Biologic Agent Administration Completed 12/12/2017 00930 Injection Completed 11/21/2017 11266 Biologic Agent Administration Completed 11/21/2017 02430 Biologic Agent Administration Completed 11/14/2017 90943 Extract 1-10 Completed 11/14/2017 61899 Injection Completed 10/31/2017 23027 Injection Completed 10/24/2017 42002 Biologic Agent Administration Completed 10/24/2017 07884 Biologic Agent Administration Completed 10/17/2017 05910 Injection Completed 09/21/2017 13095 Pre PFT Completed 09/21/2017 74153 Biologic Agent Administration Completed 08/29/2017 02016 Injection Completed 08/22/2017 90493 Biologic Agent Administration Completed 08/22/2017 80862 Biologic Agent Administration Completed 08/15/2017 61022 Injection Completed 08/01/2017 90782 Injection Completed 07/25/2017 15305 Biologic Agent Administration Completed 07/11/2017 94308 Injection Completed 06/29/2017 10910 Injection Completed 06/29/2017 91156 Injection Completed 06/27/2017 53911 Biologic Agent Administration Completed 06/15/2017 83964 Injection Completed 05/25/2017 29055 Biologic Agent Administration Completed 05/25/2017 33432 Biologic Agent Administration Completed 05/23/2017 69113 Extract 1-10 Completed 05/23/2017 34867 Injection Completed 05/02/2017 68451 Injection Completed 05/02/2017 49875 Extract 1-10 Completed 04/18/2017 54958 Injection Completed 04/04/2017 59481 Injection Completed 03/23/2017 63522 Biologic Agent Administration Completed 03/23/2017 88104 Biologic Agent Administration Completed 03/21/2017 08244 Injection Completed 03/07/2017 20928 Injection Completed 02/23/2017 81009 Biologic Agent Administration Completed 02/21/2017 98183 Injection Completed 01/31/2017 89784 Injection Completed 01/26/2017 24134 Biologic Agent Administration Completed 01/04/2017 78683 Injection Completed 12/29/2016 17302 Biologic Agent Administration Completed 12/22/2016 88398 Pre PFT Completed 12/13/2016 19047 Injection Completed 11/24/2016 56938 Biologic Agent Administration Completed 11/22/2016 64831 Injection Completed 11/09/2016 92635 Extract 1-10 Completed 11/09/2016 64229 Injection Completed 10/27/2016 65378 Biologic Agent Administration Completed 10/25/2016 02505 Injection Completed 10/12/2016 93139 Injection Completed 09/27/2016 27948 Injection Completed 09/13/2016 58690 Injection Completed 08/31/2016 13364 Pre PFT Completed 08/31/2016 89820 Injection Completed 08/09/2016 26253 Injection Completed 07/12/2016 95188 Injection Completed 07/05/2016 38717 Pre PFT Completed 06/28/2016 76928 Injection Completed 06/14/2016 94233 Injection Completed 05/24/2016 87210 Extract 1-10 Completed 05/24/2016 53950 Injection Completed 05/10/2016 94120 Injection Completed 04/26/2016 78847 Injection Completed 04/12/2016 69441 Injection Completed 03/29/2016 15555 Injection Completed 03/15/2016 40830 Injection Completed 03/01/2016 07770 Injection Completed 02/16/2016 59362 Injection Completed 02/02/2016 28880 Injection Completed 01/05/2016 89702 Injection Completed 01/05/2016 13517 Pre PFT Completed 12/22/2015 27549 Extract 1-10 Completed 12/22/2015 75027 Injection Completed 12/08/2015 35796 Injection Completed 11/24/2015 43929 Injection Completed 11/24/2015 32920 Pre PFT Completed 11/10/2015 23754 Injection Completed 10/27/2015 77278 Injection Completed 09/29/2015 52335 Injection Completed 09/01/2015 44492 Injection Completed 09/01/2015 77930 Injection Completed 08/18/2015 63453 Injection Completed 08/04/2015 96762 Injection Completed 07/21/2015 01358 Injection Completed 07/07/2015 49087 Pre PFT Completed 07/07/2015 90371 Injection Completed 07/07/2015 62925 Extract 1-10 Completed 06/23/2015 47484 Injection Completed 06/02/2015 20754 Injection Completed 05/19/2015 41452 Injection Completed 05/05/2015 36103 Injection Completed 04/14/2015 45309 Injection Completed 03/31/2015 17720 Injection Completed 03/17/2015 82410 Injection Completed 02/17/2015 21367 Injection Completed 02/03/2015 26355 Injection Completed 01/20/2015 83873 Extract 1-10 Completed 01/20/2015 21509 Injection Completed 01/13/2015 08654 Injection Completed 01/06/2015 15952 Injection Completed 12/30/2014 26595 Injection Completed 11/18/2014 23738 Injection Completed 10/21/2014 35826 Injection Completed 09/23/2014 35894 Injection Completed 08/26/2014 85071 Injection Completed 08/12/2014 30474 Injection Completed 07/29/2014 63221 Injection Completed 07/29/2014 73937 Injection Completed 07/29/2014 66621 Pre PFT Completed 07/29/2014 24921 Pre PFT Completed 07/15/2014 39835 Injection Completed 07/15/2014 93650 Injection Completed 07/15/2014 05969 Extract 1-10 Completed 07/01/2014 73305 Injection Completed 07/01/2014 95694 Injection Completed 06/17/2014 20203 Injection Completed 06/17/2014 83418 Injection Completed 05/20/2014 61030 Injection Completed 05/20/2014 70901 Injection Completed 04/29/2014 43964 Injection Completed 04/29/2014 35190 Injection Completed 04/15/2014 57925 Injection Completed 04/15/2014 17802 Injection Completed 04/01/2014 77886 Injection Completed 03/18/2014 97815 Injection Completed 03/11/2014 93807 Injection Completed 03/11/2014 59965 Injection Completed 03/04/2014 58589 Injection Completed 03/04/2014 26792 Injection Completed 02/25/2014 95964 Extract 1-10 Completed 02/25/2014 47268 Injection Completed 02/25/2014 77217 Injection Completed 02/18/2014 77794 Injection Completed 02/18/2014 79706 Injection Completed 02/04/2014 62910 Injection Completed 02/04/2014 88242 Injection Completed 01/28/2014 19425 Injection Completed 01/28/2014 33779 Injection Completed 01/21/2014 76749 Pulmonary Function Test Completed 01/21/2014 07579 Pulmonary Function Test Completed 01/14/2014 29127 Injection Completed 01/14/2014 54561 Injection Completed 01/07/2014 58522 Injection Completed 01/07/2014 09728 Injection Completed 12/31/2013 91216 Injection Completed 12/31/2013 24977 Injection Completed 12/24/2013 98633 Injection Completed 12/24/2013 20930 Injection Completed 12/17/2013 37696 Injection Completed 12/10/2013 28354 Injection Completed 12/03/2013 25347 Extract 1-10 Completed 12/03/2013 63788 Injection Completed 11/19/2013 86652 Injection Completed 11/12/2013 91127 Injection Completed 10/31/2013 83231 Injection Completed 10/31/2013 43468 Injection Completed 10/22/2013 38933 Injection Completed 10/17/2013 95492 Injection Completed 10/17/2013 12869 Injection Completed 09/26/2013 86621 Oxygen Level - Pulse Oximiter Completed 09/26/2013 42303 Injection Completed 09/26/2013 10693 Injection Completed 09/17/2013 20059 Injection Completed 09/17/2013 19739 Injection Completed 09/12/2013 54370 Injection Completed 09/12/2013 06052 Injection Completed 09/03/2013 80633 Injection Completed 09/03/2013 30383 Injection Completed 08/27/2013 04038 Injection Completed 08/27/2013 32257 Injection Completed 08/27/2013 69879 Extract 1-10 Completed 08/22/2013 72520 Injection Completed 08/22/2013 00078 Injection Completed 08/13/2013 02076 Injection Completed 08/13/2013 89621 Injection Completed 08/08/2013 83299 Injection Completed 08/08/2013 97793 Injection Completed 08/01/2013 11836 Injection Completed 08/01/2013 77817 Injection Completed 07/23/2013 71705 Injection Completed 07/23/2013 19542 Injection Completed 07/23/2013 66483 Oxygen Level - Pulse Oximiter Completed 07/18/2013 66059 Injection Completed 07/18/2013 17060 Injection Completed 06/27/2013 28334 Injection Completed 06/27/2013 77693 Injection Completed 06/13/2013 29701 Injection Completed 06/13/2013 27036 Injection Completed 05/02/2013 56981 Injection Completed 05/02/2013 11103 Injection Completed 04/23/2013 29913 Extract 1-10 Completed 04/23/2013 73109 Injection Completed 04/23/2013 20903 Injection Completed 04/04/2013 06261 Injection Completed 04/04/2013 07756 Injection Completed 03/28/2013 67777 Injection Completed 03/28/2013 50204 Injection Completed 03/12/2013 77989 Injection Completed 03/12/2013 52345 Injection Completed 03/07/2013 24231 Injection Completed 03/07/2013 51351 Injection Completed 02/26/2013 42830 Injection Completed 02/26/2013 57481 Injection Completed 02/21/2013 48196 Injection Completed 02/21/2013 36757 Injection Completed 02/12/2013 38281 Injection Completed 02/05/2013 72760 Injection Completed 02/05/2013 73588 Injection Completed 01/29/2013 64422 Injection Completed 01/03/2013 09663 Oxygen Level - Pulse Oximiter Completed 01/03/2013 29482 Pulmonary Function Test Completed 12/27/2012 85960 Injection Completed 12/27/2012 26467 Injection Completed 12/27/2012 55969 Extract 1-10 Completed 12/18/2012 36048 Injection Completed 12/11/2012 01456 Injection Completed 12/06/2012 86109 Injection Completed 11/29/2012 77369 Injection Completed 08/28/2012 47475 Injection Completed 08/23/2012 48868 Injection Completed 08/16/2012 89364 Injection Completed 08/09/2012 26686 Injection Completed 08/02/2012 88916 Injection Completed 07/26/2012 16680 Injection Completed 07/23/2012 37824 Extract 1-10 Completed 06/28/2012 15933 Skin Test Scratch # Of Units ____ Completed 06/28/2012 69809 Oxygen Level - Pulse Oximiter Completed 06/28/2012 91789 Pulmonary Function Test Completed Encounters Type Date Location Provider Dx Diagnosis Office Visit 10/03/2018 [facility] Carmen Espinoza, Z23 Encounter for 9:20a [facility] immunization J45.50 Severe persistent asthma, uncomplicated J30.89 Other allergic rhinitis J30.81 Allergic rhinitis due to animal (cat) (dog) hair and dander J30.2 Other seasonal allergic rhinitis J30.1 Allergic rhinitis due to pollen Office Visit 01/08/2018 3:00p Emmy Espinoza J45.40 Moderate persistent [facility] asthma, uncomplicated J30.89 Other allergic rhinitis J30.81 Allergic rhinitis due to animal (cat) (dog) hair and dander J30.2 Other seasonal allergic rhinitis J30.1 Allergic rhinitis due to pollen B37.9 Candidiasis, unspecified Office Visit 09/19/2017 3:40p [facility] Louisa Cosme, J01.00 Acute maxillary [facility] sinusitis, unspecified R05 Cough J45.40 Moderate persistent asthma, uncomplicated Office Visit 01/18/2017 9:00a [facility] Vinay Belle J30.89 Other allergic Xiomy Colon rhinitis J06.9 Acute upper respiratory infection, unspecified J45.50 Severe persistent asthma, uncomplicated Z68.43 Body mass index (BMI) 50-59.9 , adult Office Visit 12/29/2016 8:40a [facility] Ana J01.90 Acute sinusitis, Ash, [facility] unspecified J45.40 Moderate persistent asthma, uncomplicated J30.89 Other allergic rhinitis J30.81 Allergic rhinitis due to animal (cat) (dog) hair and dander J30.2 Other seasonal allergic rhinitis J30.1 Allergic rhinitis due to pollen Z68.41 Body mass index (BMI) 40.0-44.9, adult Office Visit 12/22/2016 9:20a [facility] Ana J45.40 Moderate persistent Ash, [facility] asthma, uncomplicated J30.89 Other allergic rhinitis J30.81 Allergic rhinitis due to animal (cat) (dog) hair and dander J30.2 Other seasonal allergic rhinitis J30.1 Allergic rhinitis due to pollen Z68.43 Body mass index (BMI) 50-59.9 , adult Office Visit 08/31/2016 11:40a [facility] Toribio Ryan J45.40 Moderate persistent M.D. asthma, uncomplicated J30.1 Allergic rhinitis due to pollen Z68.43 Body mass index (BMI) 50-59.9 , adult Office Visit 08/23/2016 9:00a [place] Shelia Ochoa J45.40 Moderate persistent Office Luis Manuel Madsen. asthma, uncomplicated J45.41 Moderate persistent asthma with (acute) exacerbation J30.1 Allergic rhinitis due to pollen J30.2 Other seasonal allergic rhinitis J30.81 Allergic rhinitis due to animal (cat) (dog) hair and dander J30.89 Other allergic rhinitis Z68.43 Body mass index (BMI) 50-59.9 , adult Office Visit 07/05/2016 4:40p [facility] Amy Ordonez J45.40 Moderate persistent [facility] asthma, uncomplicated J30.1 Allergic rhinitis due to pollen J30.81 Allergic rhinitis due to animal (cat) (dog) hair and dander J30.89 Other allergic rhinitis J30.2 Other seasonal allergic rhinitis Z23 Encounter for immunization Z68.43 Body mass index (BMI) 50-59.9 , adult Office Visit 05/10/2016 11:20a [facility] Laurel Dussing, J01.90 Acute sinusitis, [facility] unspecified J30.1 Allergic rhinitis due to pollen J30.81 Allergic rhinitis due to animal (cat) (dog) hair and dander J30.2 Other seasonal allergic rhinitis J30.89 Other allergic rhinitis J45.40 Moderate persistent asthma, uncomplicated Z23 Encounter for immunization Z68.43 Body mass index (BMI) 50-59.9 , adult Office Visit 02/02/2016 11:00a [facility] Laurel Arroyo J45.40 Moderate persistent [facility] asthma, uncomplicated J30.81 Allergic rhinitis due to animal (cat) (dog) hair and dander J30.1 Allergic rhinitis due to pollen J30.89 Other allergic rhinitis J30.2 Other seasonal allergic rhinitis Z23 Encounter for immunization Z68.43 Body mass index (BMI) 50-59.9 , adult Office Visit 01/25/2016 9:00a [facility] Kitty J45.41 Moderate persistent Jacinda, [facility] asthma with (acute) exacerbation J06.9 Acute upper respiratory infection, unspecified Z23 Encounter for immunization Z68.43 Body mass index (BMI) 50-59.9 , adult Office Visit 01/05/2016 4:40p [facility] Laurel Arroyo, J45.40 Moderate persistent [facility] asthma, uncomplicated J30.1 Allergic rhinitis due to pollen J30.81 Allergic rhinitis due to animal (cat) (dog) hair and dander J30.89 Other allergic rhinitis J30.2 Other seasonal allergic rhinitis Z23 Encounter for immunization Z68.43 Body mass index (BMI) 50-59.9 , adult Office Visit 11/24/2015 4:20p [facility] Laurel Arroyo, J45.40 Moderate persistent [facility] asthma, uncomplicated J30.1 Allergic rhinitis due to pollen J30.81 Allergic rhinitis due to animal (cat) (dog) hair and dander J30.2 Other seasonal allergic rhinitis J30.89 Other allergic rhinitis Z23 Encounter for immunization Z68.43 Body mass index (BMI) 50-59.9 , adult Office Visit 11/17/2015 4:20p [facility] Laurel Dina, J20.9 Acute bronchitis, [facility] unspecified J30.1 Allergic rhinitis due to pollen J30.81 Allergic rhinitis due to animal (cat) (dog) hair and dander J30.2 Other seasonal allergic rhinitis J30.89 Other allergic rhinitis Z23 Encounter for immunization Z68.43 Body mass index (BMI) 50-59.9 , adult Office Visit 07/07/2015 4:20p [facility] Kitty Monaco, J30.2 Other seasonal [facility] allergic rhinitis J30.1 Allergic rhinitis due to pollen J45.20 Mild intermittent asthma, uncomplicated Z68.42 Body mass index (BMI) 45.0-49.9, adult Office Visit 04/14/2015 4:40p [facility] Kitty 493.00 Asthma Extrinsic Jacinda, [facility] Unspecified 477.0 Rhinitis Allergic Due To Pollen 477.8 Rhinitis Allergic Due To Other Allergen V85.43 Body Mass Index 50.0-59.9, Adult Office Visit 04/07/2015 4:40p [facility] Kitty 493.92 Asthma Unspec W/ Jacinda, [facility] Acute Exacerbation 786.2 Cough Office Visit 02/24/2015 4:40p [facility] Kitty V85.42 Body Mass Index Jacinda, [facility] 45.0-49.9, Adult 477.8 Rhinitis Allergic Due To Other Allergen 477.0 Rhinitis Allergic Due To Pollen 386.10 Vertigo Peripheral Unspec Office Visit 02/09/2015 1:40p [place] Nola 386.10 Vertigo Peripheral Erasmo, PH.D, Unspec RPA-C 477.0 Rhinitis Allergic Due To Pollen 477.8 Rhinitis Allergic Due To Other Allergen 493.00 Asthma Extrinsic Unspecified V85.43 Body Mass Index 50.0-59.9, Adult Office Visit 12/30/2014 4:40p [facility] Nola 477.8 Rhinitis Erasmo, PH.D, Allergic Due To RPA-C Other Allergen 477.0 Rhinitis Allergic Due To Pollen 493.00 Asthma Extrinsic Unspecified Office Visit 11/25/2014 [place] Nola 493.00 Asthma Extrinsic 11:00a Office Erasmo, PH.D, Unspecified RPA-C 465.8 Upper Respiratory Infections Acute Other Multiple Sites 477.0 Rhinitis Allergic Due To Pollen 477.8 Rhinitis Allergic Due To Other Allergen Office Visit 07/29/2014 9:20a [facility] Kitty Monaco, 477.0 Rhinitis [facility] Allergic Due To Pollen 477.8 Rhinitis Allergic Due To Other Allergen 493.00 Asthma Extrinsic Unspecified Office Visit 07/01/2014 5:00p [facility] Kitty 493.00 Asthma Extrinsic Jacinda, [facility] Unspecified 477.0 Rhinitis Allergic Due To Pollen 477.8 Rhinitis Allergic Due To Other Allergen Office Visit 06/26/2014 8:40a [facility] Kitty 465.8 Upper Respiratory Jacinda, [facility] Infections Acute Other Multiple Sites 493.00 Asthma Extrinsic Unspecified Office Visit 02/06/2014 9:20a [facility] Kitty Monaco, 477.0 Rhinitis [facility] Allergic Due To Pollen 477.8 Rhinitis Allergic Due To Other Allergen 493.00 Asthma Extrinsic Unspecified 465.8 Upper Respiratory Infections Acute Other Multiple Sites Office Visit 01/21/2014 11:00a [facility] Kitty Monaco, 477.0 Rhinitis [facility] Allergic Due To Pollen 477.8 Rhinitis Allergic Due To Other Allergen 493.00 Asthma Extrinsic Unspecified Office Visit 11/19/2013 8:40a [facility] Kitty Monaco, 477.0 Rhinitis [facility] Allergic Due To Pollen 477.8 Rhinitis Allergic Due To Other Allergen Office Visit 10/17/2013 8:40a [facility] Yasmine Vargas, 477.8 Rhinitis [facility] Allergic Due To Other Allergen 477.0 Rhinitis Allergic Due To Pollen 493.00 Asthma Extrinsic Unspecified Office Visit 09/26/2013 11:40a [facility] Yasmine Vargas, 461.9 Sinusitis Acute [facility] Unspec Office Visit 07/23/2013 9:40a [place] [facility] Yasmine Vargas, 477.8 Rhinitis [facility] Allergic Due To Other Allergen 477.0 Rhinitis Allergic Due To Pollen 493.00 Asthma Extrinsic Unspecified Office Visit 07/04/2013 10:20a [place] [facility] Yasmine Vargas, 477.0 Rhinitis [facility] Allergic Due To Pollen 477.8 Rhinitis Allergic Due To Other Allergen 493.02 Extrinsic Asthma With Acute Exacerbation Office Visit 05/14/2013 9:20a [place] [facility] Yasmine Masterson 493.00 Asthma Extrinsic Sam, [facility] Unspecified 466.0 Bronchitis Acute Office Visit 05/09/2013 9:40a [facility] Yasmine Vargas, 477.0 Rhinitis [facility] Allergic Due To Pollen 493.00 Asthma Extrinsic Unspecified 477.8 Rhinitis Allergic Due To Other Allergen Office Visit 06/28/2012 2:20p [facility] Cindy Loja, 477.0 Rhinitis M.D. Allergic Due To Pollen 477.8 Rhinitis Allergic Due To Other Allergen 786.09 Dyspnea & Respiratory Abnormalities Other 493.00 Asthma Extrinsic Unspecified Plan of Treatment Future Appointment(s):10/22/2019 4:20 pm - Carmen Uldrich, [facility] at [place] [id number]/24/2019 4:20 pm - Carmen Uldrich, [facility] at [facility]08/27/2019 4:20 pm - Carmen Uldrich, [facility] at [facility]07/30/2019 4:20 pm - Carmen Uldrich, [facility] at [facility]07/02/2019 4:20 pm - Carmen Uldrich, [facility] at [place] [id number]/04/2019 4:20 pm - Carmen Uldrich, [facility] at [facility]05/07/2019 4:20 pm - Carmen Uldrich, [facility] at [facility] 4:20 pm - Carmen Uldrich, [facility] at [facility]03/12/2019 4:20 pm - Carmen Uldrich, [facility] at [place] [id number]/12/2019 4:20 pm - Carmen Uldrich, [facility] at [place] Kbchxs3201/15/2019 4:20 pm - Carmen Uldrich, [facility] at [place] Bdlxob1512/18/2018 4:20 pm - Carmen Uldrich, [facility] at [facility]11/27/2018 - Carmen Uldrich, CL[facility] L[facility]-CJ30.1 Allergic rhinitis due to fnxfewV38.2 Other seasonal allergic tukqiznqG35.81 Allergic rhinitis due to animal (cat) (dog) hair and vgffplR08.89 Other allergic traifobpY25.50 Severe persistent asthma, uncomplicatedRecommendations:Continue all medications as prescribed.Refrain from wearing perfumes/scented colognes while visitingour office. Continue all medications as prescribed: Advair 500-50 mcq/dose 1 inhalation morning andnight - rinse mouth after use Ventolin 2 puffs every 4-6 hours as needed for cough, wheeze, or shortness of breath Fexofenadine 180 mg daily Montelukast 10mg daily Flonase 1 spray each nostril daily azelastine 1 spray each nostril twice daily Xolair (Omalizumab) is a recombinant humanized monoclonal antibody that inhibits the binding of circulating IgE to the high affinity IgE receptor on the surface of mast cells and basophils. Reduction in surface-bound IgE on the IgE receptor expressing cellslimits the release of mediators in the allergic response.
[2018-12-17 09:25] VITALS: BP 140/66
[2018-12-17 09:38] LABS: Influenza A Molecular POSITIVE (Negative)
--- NOTE | 2018-12-17 09:47 | UC ---
UC General HPI - HPI Summary HPI Summary: ACHES, HEADACHE, FEVER/CHILLS, COUGH AND RUNNY NOSE SINCE THIS WEEKEND. + SOB/WHEEZY. HX ASTHMA. - History of Current Complaint Chief Complaint: UCRespiratory Stated Complaint: CHILLS,FEVER,CONGESTION Time Seen by Provider: 12/17/18 09:35 Hx Obtained From: Patient Hx Last Menstrual Period: IUD Timing: Constant Pain Intensity: 6 Associated Signs & Symptoms: Positive: SOB, Wheezing. Negative: Chest Pain - Allergy/Home Medications Allergies/Adverse Reactions: Allergies Allergy/AdvReac Type Severity Reaction Status Date / Time No Known Allergies Allergy Verified 12/17/18 09:16 PMH/Surg Hx/FS Hx/Imm Hx Endocrine History: Thyroid Disease, Dyslipidemia Respiratory History: Asthma GI/ History: Gastroesophageal Reflux - Surgical History Surgical History: Yes Surgery Procedure, Year, and Place: wisdom teeth, tonsils, c section x 1 - Family History Known Family History: Positive: Hypertension - Social History Alcohol Use: Occasionally Substance Use Type: None Smoking Status (MU): Never Smoked Tobacco - Immunization History Vaccination Up to Date: Yes Review of Systems All Other Systems Reviewed And Are Negative: Yes Constitutional: Positive: Fever, Chills, Fatigue ENT: Positive: Sinus Congestion Respiratory: Positive: Shortness Of Breath, Cough Musculoskeletal: Positive: Myalgia Neurological: Positive: Headache Physical Exam Triage Information Reviewed: Yes Appearance: Well-Appearing Vital Signs: Initial Vital Signs Temp 98.7 F 12/17/18 09:19 Pulse 85 12/17/18 09:19 Resp 18 12/17/18 09:19 BP 140/66 12/17/18 09:19 Pulse Ox 98 12/17/18 09:19 Vital Signs Reviewed: Yes Eyes: Positive: Conjunctiva Clear ENT: Positive: Pharynx normal, Nasal congestion, TMs normal. Negative: Sinus tenderness Neck: Positive: Supple, Nontender, No Lymphadenopathy Respiratory: Positive: Lungs clear, No respiratory distress, Decreased breath sounds - SLIGHT, Other: - COUGH IS CONGESTED Cardiovascular: Positive: RRR, No Murmur Abdomen Description: Positive: Nontender, No Organomegaly, Soft Bowel Sounds: Positive: Present Musculoskeletal: Positive: ROM Intact Neurological: Positive: Alert Psychological: Positive: Age Appropriate Behavior Skin Exam: Normal Course/Dx - Course Course Of Treatment: INFLUENZA A+ - Diagnoses Provider Diagnosis: Influenza A Discharge - Sign-Out/Discharge Documenting (check all that apply): Patient Departure All imaging exams completed and their final reports reviewed: No Studies - Discharge Plan Condition: Stable Disposition: HOME Prescriptions: Oseltamivir CAP* [Tamiflu CAP*] 75 mg PO BID 5 Days #10 cap predniSONE [Prednisone 20 MG TAB] 40 mg PO DAILY 5 Days #10 tablet Patient Education Materials: Influenza (ED) Forms: *Work Release Referrals: Rosana Burroughs NP [Primary Care Provider] - 7 Days Additional Instructions: USE YOUR ALBUTEROL EVERY 6 HOURS - Billing Disposition and Condition Condition: STABLE Disposition: Home - Attestation Statements Provider Attestation: I was available for consult. This patient was seen by the LINNETTE. The patient was not presented to, seen by, or examined by me. -Jean
== END 2018-12-17 09:52 | disposition home or self-care (01) ==
LOC: UCCORT 08:07
DX: J11.1 Influenza due to unidentified influenza virus with other respiratory manifestations (principal); E07.9 Disorder of thyroid, unspecified; E78.5 Hyperlipidemia, unspecified; J45.909 Unspecified asthma, uncomplicated; K21.9 Gastro-esophageal reflux disease without esophagitis
CPT/HCPCS: 99212; G0463

== ENCOUNTER 2019-11-27 10:34 | Emergency (ER) | payer OTHER ==
--- OUTSIDE RECORDS SUMMARY | 2019-11-27 10:40 | XMS REPORT | Continuity of Care Document ---
:1980 External Reference #:[id number] Author Name Carmen Espinoza CHIEF DESIGN DRAFTER-C (transmitted by agent of provider Shelia Madsen) Address [address] [place] [address] Care Team Providers Name Role Phone Itzel Salter MD Care Team Information Carbonation Equipment Tender [phone] Rosana Burroughs V, FNP Care Team Information Carbonation Equipment Tender [phone] Problems Active Problems Provider Date Allergic rhinitis due to pollen Cindy Loja M.D. Onset: 06/28/2012 Allergic rhinitis Cindy Loja M.D. Onset: 06/28/2012 Uncomplicated severe persistent asthma Vinay Colon M.D. Onset: 2016 Uncomplicated moderate persistent asthma Toribio Ryan M.D. Onset: 09/21/2017 Social History Type Date Description Comments Sex Unknown ETOH Use Occasionally consumes alcohol Recreational Drug Use Never Used Drugs Tobacco Use Start: Unknown Patient has never smoked Allergies, Adverse Reactions, Alerts Description No Known Drug Allergies Medications Active Medications SIG Qnty Indications Ordering Date Provider Xolair inject 300mg every 2ml Carmen 05/01/2019 150mg/ml Soln 4 weeks Uldrich, CHIEF DESIGN DRAFTER-C Prefill Syringe Epinephrine use as directed - 2units Carmen 02/09/2018 0.3mg/0.3ML mylan generic only Uldrich, CHIEF DESIGN DRAFTER-C Solution [facility]-Inject [facility]# [id number] Montelukast Sodium Take 1 Tablet By 90tabs J45.40 Carmen 01/08/2018 10mg Mouth Every Uldrich, CHIEF DESIGN DRAFTER-C Tablets Evening Fluticasone use 1 spray in 16gm Carmen 09/11/2017 Propionate each nostril twice Uldrshamir, CHIEF DESIGN DRAFTER-C 50mcg/Act daily Suspension Ventolin HFA 2 inhalations 1units Louisa Pradorod, 02/17/2015 every 4-6 hours as CHIEF DESIGN DRAFTER-C 108(90Base) mcg/Act needed for cough, Aerosol wheeze, sob, chest tightness Albuterol Sulfate 1 vial via 75ml J30.1 Carmen 02/06/2014 nebulizer every Uldrich, CHIEF DESIGN DRAFTER-C 1.25mg/3ML Nebulizer 4-6 hours as needed for cough, sob or wheezing Fexofenadine HCL 1 tablet by mouth 90tabs Carmen 01/29/2013 180mg everyday. Uldrshamir CHIEF DESIGN DRAFTER-C Tablets Wixela Inhub inhale 1 puff by 60units Carmen mouth twice a day Uldrshamir, CHIEF DESIGN DRAFTER-C 250-50mcg/Dose Aerosol Flaxseed Oil daily Unknown 1000mg Capsules Azelastine HCL one spray each 90ml Carmen (Nasal) nostril in the Uldrich, CHIEF DESIGN DRAFTER-C 0.1% Solution morning and at night Ibuprofen three tabs three Unknown 200mg Tablets times per day as needed. Furosemide as needed RgRosana mackey 20mg Tablets Yamilet Martínez FNP Multi For Her 1 tab daily Unknown Tablets Vitamin C 1 by mouth twice a Unknown 500mg day Capsules Levothyroxine Sodium once daily Unknown 50mcg Tablets Meclizine HCL as needed Unknown 25mg Tablets Lovastatin 1 tab daily Unknown 10mg Tablets Omeprazole 1 by mouth every Unknown 40mg day Capsules DR Mcgarryoproldominga Salter, Fumarate/Bev Robbins MD hiazide 5-6.25mg Tablets Medications Administered in Office Medication SIG Qnty Indications Ordering Provider Date Biologic Agent Administration CarmenCODI LangfordP-C 10/22/2019 Injection Injection Allergy Injection 10/10/2019 Injection Biologic Agent Administration Carmen Uldrich, CHIEF DESIGN DRAFTER-C 09/24/2019 Injection Injection Allergy Injection 09/17/2019 Injection Injection Allergy Injection 09/03/2019 Injection Biologic Agent Administration Carmen Uldrich, CHIEF DESIGN DRAFTER-C 08/27/2019 Injection Injection Allergy Injection 08/21/2019 Injection Injection Allergy Injection 08/06/2019 Injection Biologic Agent Administration Carmen Ulich, CHIEF DESIGN DRAFTER-C 07/30/2019 Injection Injection Allergy Injection 07/23/2019 Injection Injection Allergy Injection 07/09/2019 Injection Biologic Agent Administration Desire Siddiqi, CHIEF DESIGN DRAFTER-C 07/04/2019 Injection Injection Allergy Injection 06/20/2019 Injection Injection Allergy Injection 06/06/2019 Injection Biologic Agent Administration Carmen Ulich, CHIEF DESIGN DRAFTER-C 06/04/2019 Injection Injection Allergy Injection 05/15/2019 Injection Biologic Agent Administration Cindy Loja M.D. 05/07/2019 Injection Injection Allergy Injection 04/18/2019 Injection Biologic Agent Administration Carmenmahad Espinoza, CHIEF DESIGN DRAFTER-C 04/09/2019 Injection Injection Allergy Injection 2019 Injection Biologic Agent Administration Carmen Ulich, CHIEF DESIGN DRAFTER-C 03/19/2019 Injection Injection Allergy Injection 03/14/2019 Injection Injection Allergy Injection 02/26/2019 Injection Injection Allergy Injection 02/14/2019 Injection Biologic Agent Administration Carmen Vashtiich, CHIEF DESIGN DRAFTER-C 02/12/2019 Injection Injection Allergy Injection 01/29/2019 Injection Biologic Agent Administration Carmen Vashtiich, CHIEF DESIGN DRAFTER-C 01/15/2019 Injection Injection Allergy Injection 01/01/2019 Injection Biologic Agent Administration Carmen Uldrich, CHIEF DESIGN DRAFTER-C 12/26/2018 Injection Injection Allergy Injection 11/29/2018 Injection Biologic Agent Administration Carmen Uldrich, CHIEF DESIGN DRAFTER-C 11/27/2018 Injection Injection Allergy Injection 11/13/2018 Injection Injection Allergy Injection 10/31/2018 Injection Biologic Agent Administration Carmen Uldrich, CHIEF DESIGN DRAFTER-C 10/23/2018 Injection Injection Allergy Injection 10/16/2018 Injection Biologic Agent Administration Carmen Uldrich, CHIEF DESIGN DRAFTER-C 09/25/2018 Injection Injection Allergy Injection 09/18/2018 Injection Injection Allergy Injection 09/04/2018 Injection Biologic Agent Administration Carmen Uldrich, CHIEF DESIGN DRAFTER-C 08/28/2018 Injection Injection Allergy Injection 08/14/2018 Injection Injection Allergy Injection 07/25/2018 Injection Injection Allergy Injection 07/10/2018 Injection Biologic Agent Administration aCrmen Espinoza, CHIEF DESIGN DRAFTER-C 07/04/2018 Injection Injection Allergy Injection 06/26/2018 Injection Biologic Agent Administration Cindy Loja M.D. 06/14/2018 Injection Biologic Agent Administration Desire Siddiqi, CHIEF DESIGN DRAFTER-C 06/14/2018 Injection Injection Allergy Injection 05/30/2018 Injection Injection Allergy Injection 05/15/2018 Injection Biologic Agent Administration Carmenmahad Espinoza, CHIEF DESIGN DRAFTER-C 05/08/2018 Injection Injection Allergy Injection 05/01/2018 Injection Injection Allergy Injection 04/18/2018 Injection Biologic Agent Administration Cindy Loja M.D. 04/10/2018 Injection Biologic Agent Administration Carmen Espinoza, ANUP-C 04/10/2018 Injection Injection Allergy Injection 04/03/2018 Injection Injection Allergy Injection 03/21/2018 Injection Biologic Agent Administration ANUP Lopez-C 03/13/2018 Injection Injection Allergy Injection 03/06/2018 Injection Injection Allergy Injection 02/20/2018 Injection Biologic Agent Administration Cindy Loja M.D. 02/13/2018 Injection Biologic Agent Administration ANUP Lopez-C 02/13/2018 Injection Injection Allergy Injection 02/06/2018 Injection Injection Allergy Injection 01/23/2018 Injection Biologic Agent Administration Carmen Espinoza CHIEF DESIGN DRAFTER-C 01/16/2018 Injection Injection Allergy Injection 12/26/2017 Injection Biologic Agent Administration ANUP Vega-C 12/19/2017 Injection Injection Allergy Injection 12/12/2017 Injection Biologic Agent Administration Cindy Loja M.D. 11/21/2017 Injection Biologic Agent Administration CODI VegaP-C 11/21/2017 Injection Injection Allergy Injection 11/14/2017 Injection Injection Allergy Injection 10/31/2017 Injection Biologic Agent Administration Cindy Loja M.D. 10/24/2017 Injection Biologic Agent Administration ANUP Lopez-C 10/24/2017 Injection Injection Allergy Injection 10/17/2017 Injection Biologic Agent Administration Toribio Ryan M.D. 09/21/2017 Injection Injection Allergy Injection 08/29/2017 Injection Biologic Agent Administration Cindy Loja M.D. 08/22/2017 Injection Biologic Agent Administration Louisa Carmelina, CHIEF DESIGN DRAFTER-C 08/22/2017 Injection Injection Allergy Injection 08/15/2017 Injection Injection Allergy Injection 08/01/2017 Injection Biologic Agent Administration Carmen Espinoza, CHIEF DESIGN DRAFTER-C 07/25/2017 Injection Injection Allergy Injection 07/11/2017 Injection Injection Cindy Loja M.D. 06/29/2017 Injection Injection Allergy Injection 06/29/2017 Injection Biologic Agent Administration Shelia Madsen M.D. 06/27/2017 Injection Injection Allergy Injection 06/15/2017 Injection Biologic Agent Administration Cindy Loja M.D. 05/25/2017 Injection Biologic Agent Administration CODI AnnaP-C 05/25/2017 Injection Injection Allergy Injection 05/23/2017 Injection Injection Allergy Injection 05/02/2017 Injection Injection Allergy Injection 04/18/2017 Injection Injection Allergy Injection 04/04/2017 Injection Biologic Agent Administration Cindy Loja M.D. 03/23/2017 Injection Biologic Agent Administration Ana Aleman CHIEF DESIGN DRAFTER-C 03/23/2017 Injection Injection Allergy Injection 03/21/2017 Injection Injection Allergy Injection 03/07/2017 Injection Biologic Agent Administration Ana Aleman CHIEF DESIGN DRAFTER-C 02/23/2017 Injection Injection Allergy Injection 02/21/2017 Injection Injection Allergy Injection 01/31/2017 Injection Biologic Agent Administration Ana Aleman CHIEF DESIGN DRAFTER-C 01/26/2017 Injection Injection Allergy Injection 01/04/2017 Injection Biologic Agent Administration Ana Aleman CHIEF DESIGN DRAFTER-C 12/29/2016 Injection Injection Allergy Injection 12/13/2016 Injection Biologic Agent Administration Anafrank Aleman, CHIEF DESIGN DRAFTER-C 11/24/2016 Injection Injection Allergy Injection 11/22/2016 Injection Injection Allergy Injection 11/09/2016 Injection Biologic Agent Administration Ana Ash, CHIEF DESIGN DRAFTER-C 10/27/2016 Injection Injection Allergy Injection 10/25/2016 Injection Injection Allergy Injection 10/12/2016 Injection Injection Allergy Injection 09/27/2016 Injection Injection Allergy Injection 09/13/2016 Injection Injection Allergy Injection 08/31/2016 Injection Injection Allergy Injection 08/09/2016 Injection Injection Allergy Injection 07/12/2016 Injection Injection Allergy Injection 06/28/2016 Injection Injection Allergy Injection 06/14/2016 Injection Injection Allergy Injection 05/24/2016 Injection Injection Allergy Injection 05/10/2016 Injection Injection Allergy Injection 04/26/2016 Injection Injection Allergy Injection 04/12/2016 Injection Injection Allergy Injection 03/29/2016 Injection Injection Allergy Injection 03/15/2016 Injection Injection Allergy Injection 03/01/2016 Injection Injection Allergy Injection 02/16/2016 Injection Injection Cindy Loja M.D. 02/02/2016 Injection Injection Allergy Injection 01/05/2016 Injection Injection Allergy Injection 12/22/2015 Injection Injection Allergy Injection 12/08/2015 Injection Injection Allergy Injection 11/24/2015 Injection Injection Allergy Injection 11/10/2015 Injection Injection Allergy Injection 10/27/2015 Injection Injection Allergy Injection 09/29/2015 Injection Injection Cindy Loja M.D. 09/01/2015 Injection Injection Allergy Injection 09/01/2015 Injection Injection Allergy Injection 08/18/2015 Injection Injection Allergy Injection 08/04/2015 Injection Injection Allergy Injection 07/21/2015 Injection Injection Allergy Injection 07/07/2015 Injection Injection Allergy Injection 06/23/2015 Injection Injection Allergy Injection 06/02/2015 Injection Injection Allergy Injection 05/19/2015 Injection Injection Allergy Injection 05/05/2015 Injection Injection Allergy Injection 04/14/2015 Injection Injection Allergy Injection 03/31/2015 Injection Injection Allergy Injection 03/17/2015 Injection Injection Allergy Injection 02/17/2015 Injection Injection Allergy Injection 02/03/2015 Injection Injection Allergy Injection 01/20/2015 Injection Injection Allergy Injection 01/13/2015 Injection Injection Allergy Injection 01/06/2015 Injection Injection Allergy Injection 12/30/2014 Injection Injection Allergy Injection 11/18/2014 Injection Injection Allergy Injection 10/21/2014 Injection Injection Allergy Injection 09/23/2014 Injection Injection Allergy Injection 08/26/2014 Injection Injection Allergy Injection 08/12/2014 Injection Injection Cindy Loja M.D. 07/29/2014 Injection Injection Allergy Injection 07/29/2014 Injection Injection Cindy Loja M.D. 07/15/2014 Injection Injection Allergy Injection 07/15/2014 Injection Injection Cindy Loja M.D. 07/01/2014 Injection Injection Allergy Injection 07/01/2014 Injection Injection Cindy Loja M.D. 06/17/2014 Injection Injection Allergy Injection 06/17/2014 Injection Injection Cindy Loja M.D. 05/20/2014 Injection Injection Allergy Injection 05/20/2014 Injection Injection Cindy Loja M.D. 04/29/2014 Injection Injection Allergy Injection 04/29/2014 Injection Injection Cindy Loja M.D. 04/15/2014 Injection Injection Allergy Injection 04/15/2014 Injection Injection Allergy Injection 04/01/2014 Injection Injection Allergy Injection 03/18/2014 Injection Injection Cindy Loja M.D. 03/11/2014 Injection Injection Allergy Injection 03/11/2014 Injection Injection Cindy Loja M.D. 03/04/2014 Injection Injection Allergy Injection 03/04/2014 Injection Injection Cindy Loja M.D. 02/25/2014 Injection Injection Allergy Injection 02/25/2014 Injection Injection Cindy Loja M.D. 02/18/2014 Injection Injection Allergy Injection 02/18/2014 Injection Injection Cindy Loja M.D. 02/04/2014 Injection Injection Allergy Injection 02/04/2014 Injection Injection Cindy Loja M.D. 01/28/2014 Injection Injection Allergy Injection 01/28/2014 Injection Injection Cindy Loja M.D. 01/14/2014 Injection Injection Allergy Injection 01/14/2014 Injection Injection Cindy Loja M.D. 01/07/2014 Injection Injection Allergy Injection 01/07/2014 Injection Injection Cindy Loja M.D. 12/31/2013 Injection Injection Allergy Injection 12/31/2013 Injection Injection Cindy Loja M.D. 12/24/2013 Injection Injection Allergy Injection 12/24/2013 Injection Injection Allergy Injection 12/17/2013 Injection Injection Allergy Injection 12/10/2013 Injection Injection Allergy Injection 12/03/2013 Injection Injection Allergy Injection 11/19/2013 Injection Injection Allergy Injection 11/12/2013 Injection Injection Cindy Loja M.D. 10/31/2013 Injection Injection Allergy Injection 10/31/2013 Injection Injection Allergy Injection 10/22/2013 Injection Injection Cindy Loja M.D. 10/17/2013 Injection Injection Allergy Injection 10/17/2013 Injection Injection Cindy Loja M.D. 09/26/2013 Injection Injection Allergy Injection 09/26/2013 Injection Injection Cindy Loja M.D. 09/17/2013 Injection Injection Allergy Injection 09/17/2013 Injection Injection Cindy Loja M.D. 09/12/2013 Injection Injection Allergy Injection 09/12/2013 Injection Injection Cindy Loja M.D. 09/03/2013 Injection Injection Allergy Injection 09/03/2013 Injection Injection Cindy Loja M.D. 08/27/2013 Injection Injection Allergy Injection 08/27/2013 Injection Injection Cindy Loja M.D. 08/22/2013 Injection Injection Allergy Injection 08/22/2013 Injection Injection Cindy Loja M.D. 08/13/2013 Injection Injection Allergy Injection 08/13/2013 Injection Injection Cindy Loja M.D. 08/08/2013 Injection Injection Allergy Injection 08/08/2013 Injection Injection Cindy Loja M.D. 08/01/2013 Injection Injection Allergy Injection 08/01/2013 Injection Injection Cindy Loja M.D. 07/23/2013 Injection Injection Allergy Injection 07/23/2013 Injection Injection Cindy Loja M.D. 07/18/2013 Injection Injection Allergy Injection 07/18/2013 Injection Injection Cindy Loja M.D. 06/27/2013 Injection Injection Allergy Injection 06/27/2013 Injection Injection Cindy Loja M.D. 06/13/2013 Injection Injection Allergy Injection 06/13/2013 Injection Injection Cindy Loja M.D. 05/02/2013 Injection Injection Allergy Injection 05/02/2013 Injection Injection Cindy Loja M.D. 04/23/2013 Injection Injection Allergy Injection 04/23/2013 Injection Injection Cindy Loja M.D. 04/04/2013 Injection Injection Allergy Injection 04/04/2013 Injection Injection Cindy Loja M.D. 03/28/2013 Injection Injection Allergy Injection 03/28/2013 Injection Injection Cindy Loja M.D. 03/12/2013 Injection Injection Allergy Injection 03/12/2013 Injection Injection Cindy Loja M.D. 03/07/2013 Injection Injection Allergy Injection 03/07/2013 Injection Injection Cindy Loja M.D. 02/26/2013 Injection Injection Allergy Injection 02/26/2013 Injection Injection Cindy Loja M.D. 02/21/2013 Injection Injection Allergy Injection 02/21/2013 Injection Injection Allergy Injection 02/12/2013 Injection Injection Cindy Loja M.D. 02/05/2013 Injection Injection Allergy Injection 02/05/2013 Injection Injection Allergy Injection 01/29/2013 Injection Injection Cindy Loja M.D. 12/27/2012 Injection Injection Allergy Injection 12/27/2012 Injection Injection Cindy Loja M.D. 12/18/2012 Injection Injection Cindy Loja M.D. 12/11/2012 Injection Injection Cindy Loja M.D. 12/06/2012 Injection Injection Cindy Loja M.D. 11/29/2012 Injection Injection Cindy Loja M.D. 08/28/2012 Injection Injection Cindy Loja M.D. 08/23/2012 Injection Injection Cindy Loja M.D. 08/16/2012 Injection Injection Cindy Loja M.D. 08/09/2012 Injection Injection Cindy Loja M.D. 08/02/2012 Injection Injection Cindy Loja M.D. 07/26/2012 Injection Immunizations CPT Code Status Date Vaccine Lot # 69875 Given Unknown Influenza Vaccine 27998 Given Unknown Influenza Vaccine 54713 Given Unknown Influenza Vaccine 71589 Given Unknown Influenza Vaccine 01457 Given Unknown Influenza Vaccine 60819 Given Unknown Influenza Vaccine 3 Years Old + Vital Signs Date Vital Result Comment 10/22/2019 4:13pm Height 65 inches 5'5" Weight 322.00 lb Weight 146.059 kg Respiratory Rate 20 /min Heart Rate 74 /min O2 % BldC Oximetry 96 % BP Systolic 114 mmHg BP Diastolic 66 mmHg Asthma Control Test 24 BMI (Body Mass Index) 53.6 kg/m2 09/24/2019 3:56pm Height 65 inches 5'5" Weight 325.00 lb Weight 147.420 kg Respiratory Rate 24 /min Heart Rate 71 /min O2 % BldC Oximetry 98 % BP Systolic 127 mmHg BP Diastolic 66 mmHg Asthma Control Test 25 Fractional Exhaled Nitric Oxide 11 BMI (Body Mass Index) 54.1 kg/m2 Results Description No Information Available Procedures Date Code Description Status 10/22/2019 24981 Biologic Agent Administration Completed 10/10/2019 69496 Injection Completed 09/24/2019 43459 Biologic Agent Administration Completed 09/24/2019 35003 Nitric Oxide Gas Determination Completed 09/24/2019 95542 Nitric Oxide Gas Determination Completed 09/24/2019 22169 Pre PFT Completed 09/17/2019 47016 Injection Completed 09/03/2019 66757 Injection Completed 08/27/2019 94512 Biologic Agent Administration Completed 08/21/2019 15448 Injection Completed 08/06/2019 50224 Injection Completed 07/30/2019 66973 Biologic Agent Administration Completed 07/23/2019 19421 Injection Completed 07/09/2019 97676 Injection Completed 07/04/2019 07606 Biologic Agent Administration Completed 06/20/2019 67291 Injection Completed 06/06/2019 26433 Injection Completed 06/04/2019 97142 Biologic Agent Administration Completed 05/15/2019 87292 Extract 1-10 Completed 05/15/2019 67835 Injection Completed 05/07/2019 96787 Biologic Agent Administration Completed 05/07/2019 37779 Nitric Oxide Gas Determination Completed Medical Devices Description No Information Available Encounters Description No Information Available Assessments Date Code Description Provider 10/22/2019 J30.1 Allergic rhinitis due to pollen Cindy Loja M.D. 10/22/2019 J30.1 Allergic rhinitis due to pollen ANUP Lopez-Hunter 10/22/2019 J30.2 Other seasonal allergic rhinitis Cindy Loja M.D. 10/22/2019 J30.2 Other seasonal allergic rhinitis ANUP Lopez-C 10/22/2019 J30.81 Allergic rhinitis due to animal (cat) (dog) Cindy Loja M.D. hair and dander 10/22/2019 J30.81 Allergic rhinitis due to animal (cat) (dog) JOSUÉ Lopez hair and dander 10/22/2019 J30.89 Other allergic rhinitis Cindy Loja M.D. 10/22/2019 J30.89 Other allergic rhinitis ANUP Lopez-Hunter 10/22/2019 J45.50 Severe persistent asthma, uncomplicated Carmen Ulwilliams, CHIEF DESIGN DRAFTER-C 10/10/2019 J30.1 Allergic rhinitis due to pollen Cindy Loja M.D. 10/10/2019 J30.1 Allergic rhinitis due to pollen Allergy Injection 10/10/2019 J30.2 Other seasonal allergic rhinitis Cindy Loja M.D. 10/10/2019 J30.2 Other seasonal allergic rhinitis Allergy Injection 10/10/2019 J30.81 Allergic rhinitis due to animal (cat) (dog) Cindy Loja M.D. hair and dander 10/10/2019 J30.81 Allergic rhinitis due to animal (cat) (dog) Allergy Injection hair and dander 10/10/2019 J30.89 Other allergic rhinitis Cindy Loja M.D. 10/10/2019 J30.89 Other allergic rhinitis Allergy Injection 09/24/2019 J45.50 Severe persistent asthma, uncomplicated Cindy Loja M.D. 09/24/2019 J45.50 Severe persistent asthma, uncomplicated Carmenmahad Espinoza, CHIEF DESIGN DRAFTER-C 09/24/2019 J30.89 Other allergic rhinitis Cindy Loja M.D. 09/24/2019 J30.89 Other allergic rhinitis Carmenmahad Espinoza, CHIEF DESIGN DRAFTER-C 09/24/2019 J30.81 Allergic rhinitis due to animal (cat) (dog) Cindy Loja M.D. hair and dander 09/24/2019 J30.81 Allergic rhinitis due to animal (cat) (dog) Carmen Espinoza, CHIEF DESIGN DRAFTER-C hair and dander 09/24/2019 J30.2 Other seasonal allergic rhinitis Cindy Loja M.D. 09/24/2019 J30.2 Other seasonal allergic rhinitis Carmenmahad Espinoza, CHIEF DESIGN DRAFTER-C 09/24/2019 J30.1 Allergic rhinitis due to pollen Carmen Espinoza, CHIEF DESIGN DRAFTER-C 09/17/2019 J30.1 Allergic rhinitis due to pollen Cindy Loja M.D. 09/17/2019 J30.1 Allergic rhinitis due to pollen Allergy Injection 09/17/2019 J30.2 Other seasonal allergic rhinitis Cindy Loja M.D. 09/17/2019 J30.2 Other seasonal allergic rhinitis Allergy Injection 09/17/2019 J30.81 Allergic rhinitis due to animal (cat) (dog) Cindy Loja M.D. hair and dander 09/17/2019 J30.81 Allergic rhinitis due to animal (cat) (dog) Allergy Injection hair and dander 09/17/2019 J30.89 Other allergic rhinitis Cindy Loja M.D. 09/17/2019 J30.89 Other allergic rhinitis Allergy Injection 09/03/2019 J30.1 Allergic rhinitis due to pollen Cindy Loja M.D. 09/03/2019 J30.1 Allergic rhinitis due to pollen Allergy Injection 09/03/2019 J30.2 Other seasonal allergic rhinitis Cindy Loja M.D. 09/03/2019 J30.2 Other seasonal allergic rhinitis Allergy Injection 09/03/2019 J30.81 Allergic rhinitis due to animal (cat) (dog) Cindy Loja M.D. hair and dander 09/03/2019 J30.81 Allergic rhinitis due to animal (cat) (dog) Allergy Injection hair and dander 09/03/2019 J30.89 Other allergic rhinitis Cindy Loja M.D. 09/03/2019 J30.89 Other allergic rhinitis Allergy Injection 08/27/2019 J45.50 Severe persistent asthma, uncomplicated Cindy Loja M.D. 08/27/2019 J45.50 Severe persistent asthma, uncomplicated Carmenmychal Espinoza, CHIEF DESIGN DRAFTER-C 08/27/2019 J30.1 Allergic rhinitis due to pollen Cindy Loja M.D. 08/27/2019 J30.1 Allergic rhinitis due to pollen Carmen Olga, CHIEF DESIGN DRAFTER-C 08/27/2019 J30.2 Other seasonal allergic rhinitis Cindy Loja M.D. 08/27/2019 J30.2 Other seasonal allergic rhinitis Carmen Olga, CHIEF DESIGN DRAFTER-C 08/27/2019 J30.81 Allergic rhinitis due to animal (cat) (dog) Cindy Loja M.D. hair and dander 08/27/2019 J30.81 Allergic rhinitis due to animal (cat) (dog) Carmen Uldrich, CHIEF DESIGN DRAFTER-C hair and dander 08/27/2019 J30.89 Other allergic rhinitis JOSUÉ Lopez 08/21/2019 J30.1 Allergic rhinitis due to pollen Cindy Loja M.D. 08/21/2019 J30.1 Allergic rhinitis due to pollen Allergy Injection 08/21/2019 J30.2 Other seasonal allergic rhinitis Cindy Loja M.D. 08/21/2019 J30.2 Other seasonal allergic rhinitis Allergy Injection 08/21/2019 J30.81 Allergic rhinitis due to animal (cat) (dog) Cindy Loja M.D. hair and dander 08/21/2019 J30.81 Allergic rhinitis due to animal (cat) (dog) Allergy Injection hair and dander 08/21/2019 J30.89 Other allergic rhinitis Cindy Loja M.D. 08/21/2019 J30.89 Other allergic rhinitis Allergy Injection 08/06/2019 J30.1 Allergic rhinitis due to pollen Cindy Loja M.D. 08/06/2019 J30.1 Allergic rhinitis due to pollen Allergy Injection 08/06/2019 J30.2 Other seasonal allergic rhinitis Cindy Loja M.D. 08/06/2019 J30.2 Other seasonal allergic rhinitis Allergy Injection 08/06/2019 J30.81 Allergic rhinitis due to animal (cat) (dog) Cindy Loja M.D. hair and dander 08/06/2019 J30.81 Allergic rhinitis due to animal (cat) (dog) Allergy Injection hair and dander 08/06/2019 J30.89 Other allergic rhinitis Cindy Loja M.D. 08/06/2019 J30.89 Other allergic rhinitis Allergy Injection 07/30/2019 Z23 Encounter for immunization JOSUÉ Lopez 07/30/2019 J45.50 Severe persistent asthma, uncomplicated JOSUÉ Lopez 07/30/2019 J30.89 Other allergic rhinitis JOSUÉ Lopez 07/30/2019 J30.81 Allergic rhinitis due to animal (cat) (dog) JOSUÉ Lopez hair and dander 07/30/2019 J30.2 Other seasonal allergic rhinitis CarmenANUP Calixto-C 07/30/2019 J30.1 Allergic rhinitis due to pollen ANUP Lopez-C 07/23/2019 J30.1 Allergic rhinitis due to pollen Cindy Loja M.D. 07/23/2019 J30.1 Allergic rhinitis due to pollen Allergy Injection 07/23/2019 J30.2 Other seasonal allergic rhinitis Cindy Loja M.D. 07/23/2019 J30.2 Other seasonal allergic rhinitis Allergy Injection 07/23/2019 J30.81 Allergic rhinitis due to animal (cat) (dog) Cindy Loja M.D. hair and dander 07/23/2019 J30.81 Allergic rhinitis due to animal (cat) (dog) Allergy Injection hair and dander 07/23/2019 J30.89 Other allergic rhinitis Cindy Loja M.D. 07/23/2019 J30.89 Other allergic rhinitis Allergy Injection 07/09/2019 J30.1 Allergic rhinitis due to pollen Cindy Loja M.D. 07/09/2019 J30.1 Allergic rhinitis due to pollen Allergy Injection 07/09/2019 J30.2 Other seasonal allergic rhinitis Cindy Loja M.D. 07/09/2019 J30.2 Other seasonal allergic rhinitis Allergy Injection 07/09/2019 J30.81 Allergic rhinitis due to animal (cat) (dog) Cindy Loja M.D. hair and dander 07/09/2019 J30.81 Allergic rhinitis due to animal (cat) (dog) Allergy Injection hair and dander 07/09/2019 J30.89 Other allergic rhinitis Cindy Loja M.D. 07/09/2019 J30.89 Other allergic rhinitis Allergy Injection 07/04/2019 J45.50 Severe persistent asthma, uncomplicated Cindy Loja M.D. 07/04/2019 J45.50 Severe persistent asthma, uncomplicated ANUP Saldana 07/04/2019 J30.1 Allergic rhinitis due to pollen Cindy Loja M.D. 07/04/2019 J30.1 Allergic rhinitis due to pollen JOSUÉ Saldana 07/04/2019 J30.81 Allergic rhinitis due to animal (cat) (dog) Cindy Loja M.D. hair and dander 07/04/2019 J30.81 Allergic rhinitis due to animal (cat) (dog) JOSUÉ Saldana hair and dander 06/20/2019 J30.1 Allergic rhinitis due to pollen Cindy Loja M.D. 06/20/2019 J30.1 Allergic rhinitis due to pollen Allergy Injection 06/20/2019 J30.2 Other seasonal allergic rhinitis Cindy Loja M.D. 06/20/2019 J30.2 Other seasonal allergic rhinitis Allergy Injection 06/20/2019 J30.81 Allergic rhinitis due to animal (cat) (dog) Cindy Loja M.D. hair and dander 06/20/2019 J30.81 Allergic rhinitis due to animal (cat) (dog) Allergy Injection hair and dander 06/20/2019 J30.89 Other allergic rhinitis Cindy Loja M.D. 06/20/2019 J30.89 Other allergic rhinitis Allergy Injection 06/06/2019 J30.1 Allergic rhinitis due to pollen Cindy Loja M.D. 06/06/2019 J30.1 Allergic rhinitis due to pollen Allergy Injection 06/06/2019 J30.2 Other seasonal allergic rhinitis Cindy Loja M.D. 06/06/2019 J30.2 Other seasonal allergic rhinitis Allergy Injection 06/06/2019 J30.81 Allergic rhinitis due to animal (cat) (dog) Cindy Loja M.D. hair and dander 06/06/2019 J30.81 Allergic rhinitis due to animal (cat) (dog) Allergy Injection hair and dander 06/06/2019 J30.89 Other allergic rhinitis Cindy Loja M.D. 06/06/2019 J30.89 Other allergic rhinitis Allergy Injection 06/04/2019 J30.1 Allergic rhinitis due to pollen Cindy Loja M.D. 06/04/2019 J30.1 Allergic rhinitis due to pollen JOSUÉ Lopez 06/04/2019 J30.2 Other seasonal allergic rhinitis Cindy Loja M.D. 06/04/2019 J30.2 Other seasonal allergic rhinitis CODI LopezP-C 06/04/2019 J30.81 Allergic rhinitis due to animal (cat) (dog) Cindy Loja M.D. hair and dander 06/04/2019 J30.81 Allergic rhinitis due to animal (cat) (dog) Carmenmahad Espinoza [employer] hair and dander 06/04/2019 J30.89 Other allergic rhinitis Cindy Loja M.D. 06/04/2019 J30.89 Other allergic rhinitis Carmenmahad Espinoza [employer] 06/04/2019 J45.50 Severe persistent asthma, uncomplicated CODI LopezP-C 05/15/2019 J30.1 Allergic rhinitis due to pollen Cindy Loja M.D. 05/15/2019 J30.1 Allergic rhinitis due to pollen Allergy Injection 05/15/2019 J30.2 Other seasonal allergic rhinitis Cindy Loja M.D. 05/15/2019 J30.2 Other seasonal allergic rhinitis Allergy Injection 05/15/2019 J30.81 Allergic rhinitis due to animal (cat) (dog) Cindy Loja M.D. hair and dander 05/15/2019 J30.81 Allergic rhinitis due to animal (cat) (dog) Allergy Injection hair and dander 05/15/2019 J30.89 Other allergic rhinitis Cindy Loja M.D. 05/15/2019 J30.89 Other allergic rhinitis Allergy Injection 05/07/2019 J45.50 Severe persistent asthma, uncomplicated Cindy Loja M.D. 05/07/2019 J30.1 Allergic rhinitis due to pollen Cindy Loja M.D. 05/07/2019 J30.1 Allergic rhinitis due to pollen Carmen Espinoza [employer] 05/07/2019 J30.2 Other seasonal allergic rhinitis Cindy Loja M.D. 05/07/2019 J30.2 Other seasonal allergic rhinitis Carmen Espinoza [employer] 05/07/2019 J30.81 Allergic rhinitis due to animal (cat) (dog) Cindy Loja M.D. hair and dander 05/07/2019 J30.81 Allergic rhinitis due to animal (cat) (dog) Carmen Uldrich, [employer] hair and dander 05/07/2019 J30.89 Other allergic rhinitis Cindy Loja M.D. 05/07/2019 J30.89 Other allergic rhinitis Carmen Uldrich, [employer] 05/07/2019 J45.50 Severe persistent asthma, uncomplicated Carmen Uldrich, [employer] Plan of Treatment Future Appointment(s):06/02/2020 4:20 pm - Carmen Uldrich, [employer] at [facility]05/05/2020 4:20 pm - Carmen Uldrich, [employer] at [facility]04/07/2020 4:20 pm - Carmen Uldrich, [employer] at [facility]03/10/2020 4:40 pm - Carmen Uldrich, [employer] at [facility]02/11/2020 4:20 pm - Carmen Uldrich, [employer] at [id number]/14/2020 4:20 pm - Carmen Uldrich, [employer] DES[employer] at [facility]12/17/2019 4:20 pm - Carmen Uldrich, [employer] DES[employer] at [facility] 4:40 pm - Carmen Uldrich, [employer] DES[employer] at [facility]10/24/2019 2:15 pm - Allergy Injection at [facility] Functional Status Description No Information Available Mental Status Description No Information Available Referrals Description No Information Available
[2019-11-27 10:47] VITALS: BP 149/78
--- NOTE | 2019-11-27 11:36 | UC ---
Neck Pain HPI - HPI Summary HPI Summary: left side neck pain x 3 days pain is 7 out 10 , worse with movement of her neck to the right , better with rest and heat no known injury , no n/v, no photophobia , no headaches - History of Current Complaint Chief Complaint: UCUpperExtremity Stated Complaint: NECK PAIN Time Seen by Provider: 11/27/19 11:06 Hx Obtained From: Patient Hx Last Menstrual Period: Liletta IUD Mechanism Of Injury: No Known Trauma Timing: Constant Onset/Duration: Gradual Onset, Lasting Days - 3, Still Present Severity: Moderate Pain Intensity: 2 Pain Scale Used: 0-10 Numeric Location: Discrete At: - left side of neck Character: Stiff, Spasmotic Aggravating Factors: Movement Alleviating Factors: Nothing Associated Signs & Symptoms: Negative: Swelling, Redness, Bruising, Fever, Nuchal Rigity, Weakness, Headache, Paresthesia - Allergies/Home Medications Allergies/Adverse Reactions: Allergies Allergy/AdvReac Type Severity Reaction Status Date / Time No Known Allergies Allergy Verified 11/27/19 10:41 Home Medications: Home Medications Albuterol 2.5MG/3ML (0.083%)* [Ventolin 2.5 MG/3 ML NEB.GEORGE*] 2.5 mg INH Q6H PRN 11/27/19 [History Confirmed 11/27/19] Fluticasone Propion/Salmeterol [Wixela 100-50 Inhub] 1 puff INH BID 11/27/19 [ History Confirmed 11/27/19] Ibuprofen TAB* [Advil TAB*] 600 mg PO Q6H PRN 11/27/19 [History Confirmed ] Levonorgestrel (Iud) [Liletta IUD] 18.6 mcg IU ONCE 11/27/19 [History Confirmed 11/27/19] Omalizumab [Xolair] 75 mg SQ Q30D 11/27/19 [History Confirmed 11/27/19] PMH/Surg Hx/FS Hx/Imm Hx Endocrine History: Diabetes, Hypothyroidism Respiratory History: Asthma GI/ History: Gastroesophageal Reflux - Surgical History Surgical History: Yes Surgery Procedure, Year, and Place: wisdom teeth, tonsils, c section x 1 - Family History Known Family History: Positive: Hypertension - Social History Alcohol Use: Occasionally Substance Use Type: None Smoking Status (MU): Never Smoked Tobacco - Immunization History Vaccination Up to Date: Yes Review of Systems All Other Systems Reviewed And Are Negative: Yes Is Patient Immunocompromised?: No Physical Exam Triage Information Reviewed: Yes Appearance: Well-Appearing, Pain Distress, Obese Vital Signs: Initial Vital Signs Temp 97.5 F 11/27/19 10:39 Pulse 71 11/27/19 10:39 Resp 16 11/27/19 10:39 BP 149/78 11/27/19 10:39 Pulse Ox 100 11/27/19 10:39 Vital Signs Reviewed: Yes Eyes: Positive: Conjunctiva Clear ENT Exam: Normal ENT: Positive: Normal ENT inspection, Hearing grossly normal, Pharynx normal Neck: Positive: Other: - no tenderness, no swelling, no erytheman, pain with rotation to the right limited ROM on Rotation / flexion Respiratory: Positive: Chest non-tender, Lungs clear, Normal breath sounds Cardiovascular: Positive: RRR, No Murmur, Pulses Normal Neck Pain Course/Dx - Differential Dx/Diagnosis Provider Diagnosis: Neck muscle strain Discharge ED - Sign-Out/Discharge Documenting (check all that apply): Patient Departure All imaging exams completed and their final reports reviewed: No Studies - Discharge Plan Condition: Stable Disposition: HOME Prescriptions: traMADol TAB* [Ultram*] 50 mg PO Q6HR PRN #15 tab MDD 4 tabs PRN Reason: Pain - Severe Patient Education Materials: Acute Neck Pain (ED) Referrals: Rosana Burroughs NP [Primary Care Provider] - If Needed - Billing Disposition and Condition Condition: STABLE Disposition: Home
== END 2019-11-27 11:26 | disposition home or self-care (01) ==
LOC: UCCORT 10:34
DX: S16.1XXA Strain of muscle, fascia and tendon at neck level, initial encounter (principal); E11.9 Type 2 diabetes mellitus without complications; J45.909 Unspecified asthma, uncomplicated; Z79.899 Other long term (current) drug therapy; X58.XXXA Exposure to other specified factors, initial encounter; Y92.9 Unspecified place or not applicable
CPT/HCPCS: 99212; G0463